=== PATIENT | male | born 1955 | race Caucasian/White ===

== ENCOUNTER 2018-12-29 07:35 | Outpatient (CLI) | payer OTHER ==
[2018-12-29 12:38] LABS: BASOPHILS # (AUTO) 0.1 10^3/uL (0.0-0.1); BASOPHILS % (AUTO) 0.7 %; EOSINOPHILS # (AUTO) 0.2 10^3/uL (0.0-0.7); HGB - HEMOGLOBIN 15.4 g/dL (14.0-18.0); LYMPHOCYTES # (AUTO) 2.3 10^3/uL (1.5-3.5); LYMPHOCYTES % (AUTO) 32.6 %; MEAN CORPUSCULAR HGB CONC 32.8 g/dL (32.0-36.0); MEAN CORPUSCULAR VOLUME 94.8 fL (80.0-94.0); MEAN PLATELET VOLUME 10.3 fL (7.4-11.4); MONOCYTES # (AUTO) 0.5 10^3/uL (0.0-1.0); MONOCYTES % (AUTO) 7.6 %; NEUTROPHILS # (AUTO) 3.9 10^3/uL (1.5-6.6); NEUTROPHILS % (AUTO) 55.8 %; PLT - PLATELET COUNT 320 10^3/uL (130-450); RED BLOOD COUNT 4.96 10^6/uL (4.70-6.10); RED CELL DISTRIBUTION WIDTH 12.6 % (12.0-15.0)
[2018-12-29 13:09] LABS: ALBUMIN 4.3 g/dL (3.2-5.5); ALBUMIN/GLOBULIN RATIO 1.5 (1.0-2.2); ALKALINE PHOSPHATASE 52 IU/L (42-121); ALT ALANINE AMINOTRANSFERASE 22 IU/L (10-60); AST ASPARTATE AMINOTRANSFERASE 22 IU/L (10-42); BILIRUBIN,TOTAL 1.3 mg/dL (0.2-1.0); BUN - BLOOD UREA NITROGEN 19 mg/dL (6-20); CALCIUM 9.3 mg/dL (8.5-10.3); CARBON DIOXIDE - CO2 22 mmol/L (21-32); CHLORIDE 108 mmol/L (101-111); CHOL/HDL RATIO 4.6 (<5.0); CHOLESTEROL 181 mg/dL; CREATININE 0.9 mg/dL (0.6-1.2); GFR - MDRD 85 (>89); GLUCOSE 104 mg/dL (70-100); HDL CHOLESTEROL 39 mg/dL; LDL CHOLESTEROL,CALCULATED 120 mg/dL; LDL/HDL RATIO 3.1 (<3.6); SODIUM 137 mmol/L (135-145); TOTAL PROTEIN 7.2 g/dL (6.7-8.2); VLDL CHOLESTEROL 22 mg/dL
== END 2018-12-29 23:59 | disposition home or self-care (01) ==
LOC: LAB.WCP 07:35
PROVIDERS: ATTEND Family Medicine
DX: I10 Essential (primary) hypertension (principal); Z12.5 Encounter for screening for malignant neoplasm of prostate; J45.909 Unspecified asthma, uncomplicated; J30.9 Allergic rhinitis, unspecified
CPT/HCPCS: 36415; 80053; 80061; 83721; 84153; 84443; 85025

== ENCOUNTER 2019-01-04 13:38 | Outpatient (CLI) | payer OTHER ==
[2019-01-04 19:34] LABS: BILIRUBIN,URINE NEGATIVE (NEGATIVE); GLUCOSE, URINE (UA) NEGATIVE (NEGATIVE); KETONES,URINE (UA) NEGATIVE (NEGATIVE); LEUKOCYTE ESTERASE, URINE NEGATIVE (NEGATIVE); NITRITE,URINE NEGATIVE (NEGATIVE); OCCULT BLOOD,URINE TRACE-LYSE (NEGATIVE); PROTEIN,URINE TRACE mg/dL (NEGATIVE); UROBILINOGEN,URINE 0.2 (NORMAL) E.U./dL (NORMAL)
[2019-01-04 19:39] LABS: CLARITY,URINE CLEAR (CLEAR)
[2019-01-04 19:59] LABS: BACTERIA,URINE None Seen /HPF (None Seen); RBC,URINE 0-5 /HPF (0-5); SQUAMOUS EPITHELIAL CELL,UR NONE SEEN (<= Few)
== END 2019-01-04 23:59 | disposition home or self-care (01) ==
LOC: LAB.R 13:38
PROVIDERS: ATTEND Family Medicine
DX: M54.5 Low back pain (principal)
CPT/HCPCS: 81001

== ENCOUNTER 2019-06-19 07:47 | Outpatient (CLI) | payer OTHER ==
[2019-06-19 12:39] LABS: BASOPHILS % (AUTO) 0.5 %; EOSINOPHILS # (AUTO) 0.3 10^3/uL (0.0-0.7); EOSINOPHILS % (AUTO) 3.4 %; HGB - HEMOGLOBIN 14.9 g/dL (14.0-18.0); LYMPHOCYTES # (AUTO) 2.3 10^3/uL (1.5-3.5); LYMPHOCYTES % (AUTO) 29.1 %; MEAN CORPUSCULAR HEMOGLOBIN 30.7 pg (27.0-31.0); MEAN CORPUSCULAR HGB CONC 31.8 g/dL (32.0-36.0); MEAN CORPUSCULAR VOLUME 96.5 fL (80.0-94.0); MEAN PLATELET VOLUME 10.4 fL (7.4-11.4); MONOCYTES # (AUTO) 0.7 10^3/uL (0.0-1.0); MONOCYTES % (AUTO) 9.1 %; NEUTROPHILS # (AUTO) 4.4 10^3/uL (1.5-6.6); NEUTROPHILS % (AUTO) 57.5 %; PLT - PLATELET COUNT 369 10^3/uL (130-450); RED BLOOD COUNT 4.86 10^6/uL (4.70-6.10); RED CELL DISTRIBUTION WIDTH 12.7 % (12.0-15.0); WHITE BLOOD COUNT 7.7 x10^3/uL (4.8-10.8)
[2019-06-19 13:10] LABS: ALBUMIN 4.5 g/dL (3.2-5.5); ALBUMIN/GLOBULIN RATIO 1.5 (1.0-2.2); BILIRUBIN,TOTAL 1.2 mg/dL (0.2-1.0); CALCIUM 9.3 mg/dL (8.5-10.3); CREATININE 0.9 mg/dL (0.6-1.2); TOTAL PROTEIN 7.5 g/dL (6.7-8.2)
== END 2019-06-19 23:59 | disposition home or self-care (01) ==
LOC: LAB.WCP 07:47
PROVIDERS: ATTEND Family Medicine
DX: R10.9 Unspecified abdominal pain (principal)
CPT/HCPCS: 36415; 80053; 82150; 83690; 84443; 85025

== ENCOUNTER 2019-06-20 15:44 | Outpatient (CLI) | payer OTHER ==
[2019-06-20] MEDS ORDERED: IOVERSOL 320 100 ML VIAL IVP ONE ×2 (15:48→16:11)
--- NOTE | 2019-06-21 16:46 | XRAY Report ---
Reason: LUMBAR PAIN Procedure Date: 06/20/2019 Accession Number: [id number] / [id number] Procedure: XR - Lumbar Spine 2 View CPT Code: Final Report FULL RESULT: EXAM: LUMBOSACRAL SPINE RADIOGRAPHY EXAM DATE: 06/20/2019 04:39 PM. CLINICAL HISTORY: Lumbar back pain. COMPARISONS: None. TECHNIQUE: 2 views. FINDINGS: Alignment: Normal. No spondylolisthesis or scoliosis. Bones: Five [id number]-[id number] lumbar vertebral bodies are present. No fractures or bone lesions. Degenerative changes: Mild diffuse disk height loss throughout the lumbar spine. Moderate lower lumbar facet DJD. Soft Tissues: Please see separate IVP report. The visualized bowel gas pattern is normal. Moderate stool burden. IMPRESSION: 2. Mild diffuse disk height loss throughout the lumbar spine. 2. Moderate lower lumbar facet DJD. RADIA
--- NOTE | 2019-06-21 17:11 | CT Report ---
Reason: RT FLANK PAIN, ABDOMINAL PAIN Procedure Date: 06/20/2019 Accession Number: [id number] / [id number] Procedure: CT - IVP CPT Code: Final Report FULL RESULT: EXAM: CT ABDOMEN AND PELVIS WITHOUT AND WITH CONTRAST (CT IVP) EXAM DATE: 06/20/2019 04:24 PM. CLINICAL HISTORY: RT FLANK PAIN, ABDOMINAL PAIN. COMPARISONS: None. TECHNIQUE: Routine helical imaging was performed through the kidneys, ureters and bladder in the precontrast and delayed phases. IV Contrast: 100 cc Optiray 320. Reconstructions: Coronal and sagittal. In accordance with CT protocol optimization, one or more of the following dose reduction techniques were utilized for this exam: automated exposure control, adjustment of mA and/or KV based on patient size, or use of iterative reconstructive technique. FINDINGS: Lung Bases: Unremarkable. Liver: Multiple hepatic cysts. Otherwise unremarkable. Gallbladder/Bile Ducts: Contracted, but otherwise unremarkable. No ductal dilation. Spleen: Normal. Pancreas: Normal. Adrenal Glands: Normal. Kidneys/Bladder: Right Kidney/Ureter: No renal or ureteral stones. No hydronephrosis or hydroureter. No masses. Left Kidney/Ureter: No renal or ureteral stones. No hydronephrosis or hydroureter. No masses. Bladder: Large right posterolateral diverticulum measuring 4.2 x 7.0 x 8.1 cm. No bladder calculi. Otherwise unremarkable. No wall thickening or mass. Peritoneal Cavity/Bowel: Moderate colonic diverticulosis. No free fluid, free air or adenopathy. No masses or acute inflammatory process. Pelvic Organs: Visualized pelvic organs are unremarkable. Vasculature: No aneurysms or other significant abnormality. Bones: No significant abnormality. Other: None. IMPRESSION: 1. Negative for urinary tract stone or hydronephrosis. 2. Large right posterolateral urinary bladder diverticulum. 3. Moderate diverticulosis and other chronic or incidental findings. RADIA
== END 2019-06-20 15:45 | disposition home or self-care (01) ==
LOC: DI 15:44
PROVIDERS: ATTEND Family Medicine
DX: N32.3 Diverticulum of bladder (principal); K57.30 Diverticulosis of large intestine without perforation or abscess without bleeding; M51.36 Other intervertebral disc degeneration, lumbar region; M47.816 Spondylosis without myelopathy or radiculopathy, lumbar region
CPT/HCPCS: 72100; 74178; Q9967

== ENCOUNTER 2019-09-08 08:27 | Outpatient (CLI) | payer OTHER ==
[2019-09-08 11:59] LABS: HGB - HEMOGLOBIN 14.1 g/dL (14.0-18.0); MEAN CORPUSCULAR HEMOGLOBIN 30.8 pg (27.0-31.0); MEAN CORPUSCULAR HGB CONC 32.4 g/dL (32.0-36.0); MEAN PLATELET VOLUME 9.9 fL (7.4-11.4); RED BLOOD COUNT 4.58 10^6/uL (4.70-6.10); RED CELL DISTRIBUTION WIDTH 12.6 % (12.0-15.0); WHITE BLOOD COUNT 9.4 x10^3/uL (4.8-10.8)
[2019-09-08 12:11] LABS: CK- CREATINE KINASE 60 IU/L (22-269); URIC ACID 6.5 mg/dL (2.6-7.2)
[2019-09-08 12:16] LABS: CRP - C-REACTIVE PROTEIN < 1.0 mg/dL (0-1.0)
[2019-09-08 12:30] LABS: RHEUMATOID FACTOR NEGATIVE (Negative)
[2019-09-13 06:56] LABS: ANA SCREEN NEGATIVE (NEGATIVE)
== END 2019-09-08 23:59 | disposition home or self-care (01) ==
LOC: LAB.WCP 08:27
PROVIDERS: ATTEND Family Medicine
DX: M25.50 Pain in unspecified joint (principal); M79.10 Myalgia, unspecified site
CPT/HCPCS: 36415; 82550; 84550; 85027; 85651; 86038; 86140; 86200; 86430

== ENCOUNTER 2019-09-22 08:00 | Outpatient (CLI) | payer OTHER | END 2019-09-22 23:59 | disposition home or self-care (01) | LOC: LAB.WCP 08:00 | PROVIDERS: ATTEND Family Medicine | DX: M35.3 Polymyalgia rheumatica (principal) | CPT/HCPCS: 36415; 85651 ==

== ENCOUNTER 2019-12-27 08:00 | Outpatient (CLI) | payer OTHER ==
[2019-12-27 18:42] LABS: BASOPHILS # (AUTO) 0.1 10^3/uL (0.0-0.1); BASOPHILS % (AUTO) 0.6 %; EOSINOPHILS # (AUTO) 0.3 10^3/uL (0.0-0.7); EOSINOPHILS % (AUTO) 2.6 %; HGB - HEMOGLOBIN 13.4 g/dL (14.0-18.0); LYMPHOCYTES # (AUTO) 2.1 10^3/uL (1.5-3.5); LYMPHOCYTES % (AUTO) 19.5 %; MEAN CORPUSCULAR HEMOGLOBIN 31.5 pg (27.0-31.0); MEAN CORPUSCULAR HGB CONC 32.5 g/dL (32.0-36.0); MEAN CORPUSCULAR VOLUME 96.9 fL (80.0-94.0); MONOCYTES # (AUTO) 0.6 10^3/uL (0.0-1.0); NEUTROPHILS # (AUTO) 7.5 10^3/uL (1.5-6.6); NEUTROPHILS % (AUTO) 70.8 %; PLT - PLATELET COUNT 372 10^3/uL (130-450); RED BLOOD COUNT 4.25 10^6/uL (4.70-6.10); RED CELL DISTRIBUTION WIDTH 12.9 % (12.0-15.0); WHITE BLOOD COUNT 10.6 x10^3/uL (4.8-10.8)
[2019-12-27 19:03] LABS: ALBUMIN/GLOBULIN RATIO 1.4 (1.0-2.2); BILIRUBIN,TOTAL 0.8 mg/dL (0.2-1.0); CALCIUM 8.6 mg/dL (8.5-10.3); CREATININE 0.9 mg/dL (0.6-1.2); TOTAL PROTEIN 6.8 g/dL (6.7-8.2)
== END 2019-12-27 23:59 | disposition home or self-care (01) ==
LOC: LAB.WCP 08:00
PROVIDERS: ATTEND Family Medicine
DX: M35.3 Polymyalgia rheumatica (principal); E78.5 Hyperlipidemia, unspecified; I10 Essential (primary) hypertension
CPT/HCPCS: 36415; 80053; 80061; 83721; 84443; 85025; 85651; 86140

== ENCOUNTER 2019-12-27 15:21 | Outpatient (CLI) | payer OTHER ==
--- NOTE | 2019-12-27 16:27 | XRAY Report ---
PROCEDURE: Shoulder 2 View BILAT INDICATIONS: BILAT SHOULDER PAIN/NECK PAIN TECHNIQUE: 2 views of each shoulder were acquired. COMPARISON: None. FINDINGS: Bones: No fractures or dislocations. No suspicious bony lesions. Visualized ribs appear intact. M ild periarticular osteophyte formation at the bilateral acromioclavicular and glenohumeral joints. Soft tissues: No suspicious soft tissue calcifications. IMPRESSION: Bilateral osteoarthritis. No acute fracture. No osseous lesion. If symptoms and/or clini jelena suspicion for pathology continue, further assessment with repeat plain films, or advanced imaging (e.g., CT, MRI, or bone scan) is recommended for further assessment. Reviewed by: Mitesh Mcmahon MD on 12/27/2019 4:26 PM PDT Approved by: Mitesh Mcmahon MD on 12/27/2019 4:26 PM PDT Station ID: [id number]
--- NOTE | 2019-12-27 16:28 | XRAY Report ---
PROCEDURE: Cervical Spine 2 View INDICATIONS: NECK PAIN TECHNIQUE: 3 view(s) of the cervical spine were acquired. COMPARISON: None. FINDINGS: Bones: No fractures or dislocations to the C7 level. The lateral masses of C1 appear intact on the odontoid view. No suspicious bony lesions. Mild multilevel endplate osteophytes and disc space narr owing, worst at C5-C6, indicating degenerative disc disease. Mild facet hypertrophy throughout the mi d and lower cervical spine. Soft tissues: No prevertebral soft tissue swelling. IMPRESSION: Mild multilevel degenerative disc and facet disease. No acute fracture. No osseous lesio n. If symptoms and/or clinical suspicion for pathology continue, further assessment with repeat plain films, or advanced imaging (e.g., CT, MRI, or bone scan) is recommended for further assessment. Reviewed by: Mitesh Mcmahon MD on 12/27/2019 4:27 PM PDT Approved by: Mitesh Mcmahon MD on 12/27/2019 4:27 PM PDT Station ID: [id number]
== END 2019-12-27 15:22 | disposition home or self-care (01) ==
LOC: DI 15:21
PROVIDERS: ATTEND Internal Medicine Rheumatology
DX: M19.012 Primary osteoarthritis, left shoulder (principal); M19.011 Primary osteoarthritis, right shoulder; M50.322 Other cervical disc degeneration at C5-C6 level; M47.812 Spondylosis without myelopathy or radiculopathy, cervical region
CPT/HCPCS: 72040

== ENCOUNTER 2020-02-16 07:08 | Emergency (ER) | payer OTHER ==
[2020-02-16] MEDS ORDERED: CHERRY SYRUP 10 ML UDC PO ONE (07:33)
[2020-02-16] MEDS ORDERED: DEXAMETHASONE 10 MG/ML VIAL PO STA (07:33)
--- NOTE | 2020-02-16 08:08 | ED Physician Documentation ---
History of Present Illness - Stated complaint Stated Complaint: NECK/SHOULDER PX - Chief complaint Chief Complaint: Back Pain - History obtained from History obtained from: Patient - History of Present Illness Timing: Other (8 months) - Additonal information Additional information: 64-year-old male who is had an issue with neck back and shoulder pain for the past 8 months has been treated for PMR and states that he did have some improvement with his pain during that period of time and when he reduced his dose to less than 10 mg/day his symptoms returned and despite further tapering he is not had improvement in his pain. He has worsening in his pain and he is here today with unrelenting symptoms of pain down into his hips from his neck shoulder and back. He has been referred to neurosurgery for evaluation and he has not been able as yet to get MR done secondary to insurance processing. Review of Systems Constitutional: reports: Fatigue. denies: Fever PD PAST MEDICAL HISTORY - Past Medical History Past Medical History: Yes Cardiovascular: Hypertension Respiratory: Asthma Neuro: None Endocrine/Autoimmune: None GI: None : None HEENT: None Psych: None Musculoskeletal: None Derm: None - Past Surgical History Past Surgical History: Yes - Present Medications Home Medications: Ambulatory Orders Medication Instructions Recorded Confirmed Sulfamethoxazole/Trimethoprim 1 each PO BID #14 tablet 02/16/20 [Sulfamethoxazole-Tmp Ds Tablet] - Allergies Allergies/Adverse Reactions: Allergies Allergy/AdvReac Type Severity Reaction Status Date / Time morphine Allergy Hallucinati Verified 02/16/20 07:37 ons - Social History Does the pt smoke?: No Smoking Status: Never smoker Does the pt drink ETOH?: No Does the pt have substance abuse?: No - Immunizations Immunizations are current?: Yes Results - Vitals Vitals: Vital Signs - 24 hr 02/16/20 02/16/20 02/16/20 07:14 07:24 08:21 Temperature 36.6 C 36.6 C Heart Rate 90 90 69 Respiratory 16 16 16 Rate Blood Pressure 130/94 H 130/94 H 129/89 H O2 Saturation 97 97 97 02/16/20 11:01 Temperature Heart Rate 60 Respiratory 20 Rate Blood Pressure 139/83 H O2 Saturation 97 Oxygen O2 Source Room air - Labs Labs: Laboratory Tests 02/16/20 02/16/20 02/16/20 08:20 08:20 08:20 WBC 9.9 RBC 4.28 L Hgb 13.7 L Hct 40.6 L MCV 94.9 H MCH 32.0 H MCHC 33.7 RDW 12.4 Plt Count 358 MPV 9.1 Neut # (Auto) 6.3 Lymph # (Auto) 2.4 [place] # (Auto) 0.9 Eos # (Auto) 0.2 Baso # (Auto) 0.1 Absolute Nucleated RBC 0.00 Nucleated RBC % 0.0 ESR 28 H Sodium 139 Potassium 4.2 Chloride 103 Carbon Dioxide 27 Anion Gap 9.0 BUN 19 Creatinine 1.0 Estimated GFR (MDRD) 75 L Glucose 103 H Calcium 9.1 Total Bilirubin 0.6 AST 17 ALT 17 Alkaline Phosphatase 76 C-Reactive Protein < 1.0 Total Protein 6.8 Albumin 3.9 Globulin 2.9 Albumin/Globulin Ratio 1.3 Lipase 22 TSH Urine Color Urine Clarity Urine pH Ur Specific [place] Urine Protein Urine Glucose (UA) Urine Ketones Urine Occult Blood Urine Nitrite Urine Bilirubin Urine Urobilinogen Ur Leukocyte Esterase Urine RBC Urine WBC Ur Squamous Epith Cells Urine Bacteria Ur Microscopic Review Urine Culture Comments 02/16/20 02/16/20 08:20 11:57 WBC RBC Hgb Hct MCV MCH MCHC RDW Plt Count MPV Neut # (Auto) Lymph # (Auto) [place] # (Auto) Eos # (Auto) Baso # (Auto) Absolute Nucleated RBC Nucleated RBC % ESR Sodium Potassium Chloride Carbon Dioxide Anion Gap BUN Creatinine Estimated GFR (MDRD) Glucose Calcium Total Bilirubin AST ALT Alkaline Phosphatase C-Reactive Protein Total Protein Albumin Globulin Albumin/Globulin Ratio Lipase TSH 4.48 Urine Color YELLOW Urine Clarity HAZY Urine pH 8.0 H Ur Specific [place] 1.015 Urine Protein TRACE Urine Glucose (UA) NEGATIVE Urine Ketones NEGATIVE Urine Occult Blood SMALL H Urine Nitrite NEGATIVE Urine Bilirubin NEGATIVE Urine Urobilinogen 0.2 (NORMAL) Ur Leukocyte Esterase SMALL H Urine RBC 6-10 H Urine WBC 11-25 H Ur Squamous Epith Cells RARE Squamous Urine Bacteria Few Ur Microscopic Review INDICATED Urine Culture Comments INDICATED - Rads (name of study) MRIneck Radiology: Prelim report reviewed (Impression: Spondylitic and spondylo- arthroplastic changes from C3-C4 through C6-C7 producing varying degrees of neuroforaminal stenosis, severe bilaterally at C5-C6 correlate with any corresponding C6 radicular symptoms.), EMP read indepedently, See rad report PD MEDICAL DECISION MAKING - ED course Complexity details: reviewed old records, reviewed results, re-evaluated patient, considered differential, d/w patient, d/w family ED course: 64-year-old male who is been treated for polymyalgia rheumatica appears to have had improvement with prednisone and then increasing symptoms with a decreasing dose and he has now had unrelenting symptoms. He is coming to the emergency department for evaluation to include MR of the spine and this was able to be achieved here in the emergency room today. There is evidence of spondylolisthesis and spondylolysis at 5 6 and I am not able to demonstrate any deficit of any kind related to the level. He does have general pain to the area.He is treated here in the emergency department with 10 mg of dexamethasone orally and during his stay in the emergency department while awaiting his MRI of his cervical spine he has marked improvement in his symptomatology. I am still uncertain of the underlying etiology of the patient's pain but I favor PMR as the diagnosis with elevated ESR and prompt relief with the decadron. No other medications were given in the ED. I have deferred back to Dr. Guerrier for further treatment and I have faxed the patient's labs to Dr. Guerrier. Departure - Departure Disposition: Home, Self Care Clinical Impression: Cervical radicular pain, Polymyalgia rheumatica syndrome Urinary tract infection Qualifiers: Urinary tract infection type: acute cystitis Hematuria presence: with hematuria Qualified Code(s): N30.01 - Acute cystitis with hematuria Condition: Stable Instructions: Understanding Polymyalgia Rheumatica, ED Cervical Radiculopathy, ED UTI Cystitis Male Follow-Up: Ed Guerrier MD [Physician No Access] - Rojas Marie MD [Primary Care Provider] - Prescriptions: Sulfamethoxazole/Trimethoprim [Sulfamethoxazole-Tmp Ds Tablet] 1 each PO BID #14 tablet Comments: Follow-up with Dr. Guerrier this afternoon for consideration of further treatment.
[2020-02-16 08:25] LABS: BASOPHILS # (AUTO) 0.1 10^3/uL (0.0-0.1); BASOPHILS % (AUTO) 0.6 %; EOSINOPHILS # (AUTO) 0.2 10^3/uL (0.0-0.7); EOSINOPHILS % (AUTO) 2.1 %; HGB - HEMOGLOBIN 13.7 g/dL (14.0-18.0); LYMPHOCYTES # (AUTO) 2.4 10^3/uL (1.5-3.5); LYMPHOCYTES % (AUTO) 24.6 %; MEAN CORPUSCULAR HGB CONC 33.7 g/dL (32.0-36.0); MEAN CORPUSCULAR VOLUME 94.9 fL (80.0-94.0); MEAN PLATELET VOLUME 9.1 fL (7.4-11.4); MONOCYTES # (AUTO) 0.9 10^3/uL (0.0-1.0); MONOCYTES % (AUTO) 8.6 %; NEUTROPHILS # (AUTO) 6.3 10^3/uL (1.5-6.6); NEUTROPHILS % (AUTO) 63.6 %; PLT - PLATELET COUNT 358 10^3/uL (130-450); RED BLOOD COUNT 4.28 10^6/uL (4.70-6.10); RED CELL DISTRIBUTION WIDTH 12.4 % (12.0-15.0); WHITE BLOOD COUNT 9.9 x10^3/uL (4.8-10.8)
[2020-02-16 08:44] LABS: ALBUMIN 3.9 g/dL (3.2-5.5); ALBUMIN/GLOBULIN RATIO 1.3 (1.0-2.2); ALKALINE PHOSPHATASE 76 IU/L (42-121); ALT ALANINE AMINOTRANSFERASE 17 IU/L (10-60); AST ASPARTATE AMINOTRANSFERASE 17 IU/L (10-42); BILIRUBIN,TOTAL 0.6 mg/dL (0.2-1.0); BUN - BLOOD UREA NITROGEN 19 mg/dL (6-20); CALCIUM 9.1 mg/dL (8.5-10.3); CARBON DIOXIDE - CO2 27 mmol/L (21-32); CHLORIDE 103 mmol/L (101-111); GLUCOSE 103 mg/dL (70-100); LIPASE 22 U/L (22-51); SODIUM 139 mmol/L (135-145); TOTAL PROTEIN 6.8 g/dL (6.7-8.2)
[2020-02-16 08:57] LABS: CRP - C-REACTIVE PROTEIN < 1.0 mg/dL (0-1.0)
[2020-02-16 12:09] LABS: BILIRUBIN,URINE NEGATIVE (NEGATIVE); GLUCOSE, URINE (UA) NEGATIVE (NEGATIVE); KETONES,URINE (UA) NEGATIVE (NEGATIVE); LEUKOCYTE ESTERASE, URINE SMALL (NEGATIVE); NITRITE,URINE NEGATIVE (NEGATIVE); OCCULT BLOOD,URINE SMALL (NEGATIVE); PROTEIN,URINE TRACE mg/dL (NEGATIVE); UROBILINOGEN,URINE 0.2 (NORMAL) E.U./dL (NORMAL)
[2020-02-16 12:12] LABS: CLARITY,URINE HAZY (CLEAR)
[2020-02-16 12:18] LABS: BACTERIA,URINE Few /HPF (None Seen); SQUAMOUS EPITHELIAL CELL,UR RARE Squamous (<= Few)
--- NOTE | 2020-02-16 13:09 | MRI Report ---
PROCEDURE: Cervical Spine W/O INDICATIONS: Severe neck and shoulder pain TECHNIQUE: Noncontrast sagittal T1 spin echo and T2 fast spin echo, sagittal STIR, foraminal oblique sagittal T2 fast spin echo, and axial gradient echo or T2 fast spin echo through the cervical spine. COMPARISON: None. FINDINGS: Image quality: Excellent. Alignment and Curvature: There is normal bony alignment. Bone Marrow: Marrow demonstrates normal overall signal. Spinal Cord: Visualized spinal cord has normal size and signal. No cerebellar tonsillar herniation. Paraspinous Soft Tissues: No paravertebral masses. Prevertebral soft tissues are normal in thicknes s. C2-C3: No spinal canal or neural foraminal stenosis. C3-C4: Posterior discussed by complex flattens the ventral thecal sac without mass effect upon the cord. Facet and uncovertebral hypertrophy contribute to mild bilateral neural foraminal stenosis. C4-C5: Posterior discussed by complex without mass effect on the cord or spinal canal stenosis. Face t and uncovertebral hypertrophy contribute to mild bilateral neural foraminal narrowing. C5-C6: Posterior disc osteophyte complex without mass effect upon the cord or spinal canal stenosis. Facet and uncovertebral hypertrophy contribute to severe bilateral neural foraminal narrowing. C6-C7: Posterior discussed by complex without mass effect upon the cord or spinal canal stenosis. Fa cet and uncovertebral hypertrophy contribute to moderate left and mild right neural foraminal stenosi s. C7-T1: No spinal canal or neural foraminal stenosis. IMPRESSION: Spondylitic and spondyloarthropathic changes from C3-C4 through C6-C7, producing varying degrees of n eural foraminal stenosis, severe bilaterally at C5-C6. Correlate for any corresponding C6 radicular s ymptoms. Reviewed by: Khris Del Valle MD on 02/16/2020 1:08 PM PDT Approved by: Khris Del Valle MD on 02/16/2020 1:08 PM PDT Station ID: [id number]
[2020-02-16 14:58] VITALS: BP 132/67
== END 2020-02-16 13:53 | disposition home or self-care (01) ==
LOC: ED 07:08
DX: M35.3 Polymyalgia rheumatica (principal); M43.12 Spondylolisthesis, cervical region; M47.22 Other spondylosis with radiculopathy, cervical region; M48.02 Spinal stenosis, cervical region; N30.01 Acute cystitis with hematuria; I10 Essential (primary) hypertension
CPT/HCPCS: 36415; 72141; 81001; 83690; 85651; 86140; 87086; 99283; 99284; A9270; 80053; 81003; 84443; 85025

== ENCOUNTER 2020-06-03 08:20 | Outpatient (CLI) | payer OTHER ==
--- NOTE | 2020-06-03 10:14 | DEXA Report ---
PROCEDURE: Dexa Spine and/or Hip INDICATIONS: OSTEOPOROSIS TECHNIQUE: Dual energy x-ray absorptiometry (DXA) was performed on a Collect System. Regions measur ed are the AP Spine, femoral neck, and if needed forearm. COMPARISON: None. FINDINGS: Lumbar Spine: Bone Mineral Density 1.068 g/cm/cm,T score -1.3, osteopenia Left Hip: Bone Mineral Density 0.889 g/cm/cm,T score -1.5, osteopenia Left Femoral Neck: Bone Mineral Density 0.808 g/cm/cm, T score -2.0, osteopenia (T score greater or equal to -1.0: NORMAL) (T score from -1.1 to -2.4: OSTEOPENIA) (T score less than or equal to -2.5 to: OSTEOPOROSIS) Impression: Osteopenia is present at the lumbosacral spine, left hip overall and the left femoral nec k. Patients with diagnosis of osteoporosis or osteopenia should have regular bone mineral density assess ment. For those eligible for Medicare, routine testing is allowed once every 2 years. Testing frequ ency can be increased for patients who have rapidly progressing disease or for those who are receivin g medical therapy to restore bone mass. Reviewed by: Sacha Elise MD on 06/03/2020 10:13 AM PST Approved by: Sacha Elise MD on 06/03/2020 10:13 AM PST Station ID: [id number]
== END 2020-06-03 08:21 | disposition home or self-care (01) ==
LOC: DI 08:20
PROVIDERS: ATTEND Internal Medicine Rheumatology
DX: M85.89 Other specified disorders of bone density and structure, multiple sites (principal)

== ENCOUNTER 2020-06-13 10:50 | Outpatient (CLI) | payer OTHER | END 2020-06-13 10:51 | disposition home or self-care (01) | LOC: LAB 10:50 | PROVIDERS: ATTEND Internal Medicine Rheumatology | DX: M35.3 Polymyalgia rheumatica (principal); M79.10 Myalgia, unspecified site | CPT/HCPCS: 36415; 85651; 86140 ==

== ENCOUNTER 2020-07-10 08:00 | Outpatient (CLI) | payer OTHER ==
[2020-07-10 13:44] LABS: ALBUMIN 4.4 g/dL (3.2-5.5); ALBUMIN/GLOBULIN RATIO 1.8 (1.0-2.2); BILIRUBIN,TOTAL 0.6 mg/dL (0.2-1.0); CALCIUM 9.7 mg/dL (8.5-10.3); CREATININE 0.9 mg/dL (0.6-1.2); TOTAL PROTEIN 6.9 g/dL (6.7-8.2)
[2020-07-10 14:57] LABS: HEMOGLOBIN A1c% 5.6 % (4.27-6.07)
== END 2020-07-10 23:59 | disposition home or self-care (01) ==
LOC: LAB.WCP 08:00
PROVIDERS: ATTEND Internal Medicine Rheumatology
DX: M35.3 Polymyalgia rheumatica (principal); R73.9 Hyperglycemia, unspecified
CPT/HCPCS: 36415; 80053; 83036

== ENCOUNTER 2020-07-20 02:01 | Outpatient (CLI) | payer OTHER, MEDICARE | END 2020-07-20 02:02 | disposition critical access hospital (66) | LOC: EMS 02:01 | PROVIDERS: ATTEND Surgery | DX: R10.84 Generalized abdominal pain (principal); R19.7 Diarrhea, unspecified | CPT/HCPCS: A0425; A0427 ==

== ENCOUNTER 2020-07-20 02:09 | Inpatient (IN) | payer MEDICARE, OTHER ==
[2020-07-20] MEDS ORDERED: SODIUM CHLORIDE 0.9% 1,000 ML IV STA ×2 (03:05→04:46)
--- NOTE | 2020-07-20 03:08 | ED Physician Documentation ---
PD HPI NVD - Stated complaint Stated Complaint: ABD PX - Chief complaint Chief Complaint: Abd Pain - History obtained from History obtained from: Patient - History of Present Illness Timing - onset: How many days ago (4) Timing - duration: Days (4) Timing - details: Gradual onset, Still present Associated symptoms: Abdominal pain Contributing factors: Bad food (had chili dog with raw onion and does not tolerate raw onion.) Improved by: BM Worsened by: Palpation Similar symptoms before: No diagnosis Recently seen: Not recently seen - Additonal information Additional information: Previously well 64-year-old male has developed diarrhea after eating chili dog with raw onions. This happened about 4 days ago and he was able to eat the next day had some pizza with some jalapenos on it and this again irritated the patient's intestine and he had further diarrhea he has now had diarrhea for 4 days and this evening had chills nausea but has not vomited. He denies any history of inflammatory bowel disease or family history of inflammatory bowel disease and he denies any blood in the diarrhea. He has had undulation of his pain he does currently not have pain. He has chills and feels ill. Review of Systems Constitutional: reports: Chills, Myalgias, Fatigue, Sweats Eyes: denies: Decreased vision Ears: denies: Ear pain Nose: denies: Rhinorrhea / runny nose, Congestion Throat: denies: Sore throat Cardiac: denies: Chest pain / pressure, Palpitations Respiratory: denies: Dyspnea, Cough, Wheezing GI: reports: Abdominal Pain, Nausea, Diarrhea. denies: Vomiting : denies: Dysuria, Frequency PD PAST MEDICAL HISTORY - Past Medical History Cardiovascular: Hypertension Respiratory: Asthma Neuro: None Endocrine/Autoimmune: Other GI: None : None HEENT: None Psych: None Musculoskeletal: None Derm: None Other Past Medical History: Polymyalgia rheumatica - Past Surgical History Past Surgical History: Yes - Present Medications Home Medications: Ambulatory Orders Medication Instructions Recorded Confirmed Sulfamethoxazole/Trimethoprim 1 each PO BID #14 tablet 02/16/20 [Sulfamethoxazole-Tmp Ds Tablet] - Allergies Allergies/Adverse Reactions: Allergies Allergy/AdvReac Type Severity Reaction Status Date / Time morphine Allergy Hallucinati Verified 07/20/20 02:24 ons - Social History Does the pt smoke?: No Smoking Status: Never smoker Does the pt drink ETOH?: No Does the pt have substance abuse?: No - Immunizations Immunizations are current?: Yes PD ED PE NORMAL - Vitals Vital signs reviewed: Yes (hypertensive ) - General General: Alert and oriented X 3, Well developed/nourished, Other (Ther patient does appear to have chills ) - HEENT HEENT: Atraumatic, PERRL, EOMI - Neck Neck: Supple, no meningeal sign - Cardiac Cardiac: RRR, No murmur - Respiratory Respiratory: No respiratory distress, Clear bilaterally - Abdomen Abdomen: Normal bowel sounds, Soft, Non tender, Non distended, No organomegaly - Back Back: No CVA TTP, No spinal TTP - Derm Derm: Normal color, Warm and dry, No rash - Extremities Extremities: No deformity, No edema - Neuro Neuro: Alert and oriented X 3, clay thrower 2-12 intact, No motor deficit, No sensory deficit, Normal speech Eye Opening: Spontaneous Motor: Obeys Commands Verbal: Oriented GCS Score: 15 - Psych Psych: Normal mood, Normal affect Results - Vitals Vitals: Vital Signs - 24 hr 07/20/20 07/20/20 07/20/20 02:18 02:43 04:38 Temperature 36.4 C L 36.4 C L Heart Rate 73 73 90 Respiratory 18 18 Rate Blood Pressure 147/97 H 147/97 H 144/79 H O2 Saturation 98 98 98 07/20/20 06:20 Temperature Heart Rate 89 Respiratory Rate Blood Pressure 136/88 H O2 Saturation 98 Oxygen O2 Source Room air - Labs Labs: Laboratory Tests 07/20/20 07/20/20 07/20/20 03:25 03:25 06:18 WBC 16.8 H RBC 4.49 L Hgb 14.4 Hct 43.7 MCV 97.3 H MCH 32.1 H MCHC 33.0 RDW 12.7 Plt Count 340 MPV 9.4 Neut # (Auto) Not Reportable Lymph # (Auto) Not Reportable [place] # (Auto) Not Reportable Eos # (Auto) Not Reportable Baso # (Auto) Not Reportable Absolute Nucleated RBC Not Reportable Total Counted 100 Band Neuts % (Manual) 0 Abnorm Lymph % (Manual) 0 Nucleated RBC % Not Reportable Neutrophils # (Manual) 12.3 H Lymphocytes # (Manual) 2.4 Monocytes # (Manual) 2.2 H Eosinophils # (Manual) 0.0 Basophils # (Manual) 0.0 Differential Comment MANUAL DIFFERENTIAL WBC Morphology NORMAL APPEARANCE Platelet Estimate NORMAL (130-450,000) Platelet Morphology NORMAL APPEARANCE RBC Morph Micro Appear NORMAL APPEARANCE Sodium 140 Potassium 3.8 Chloride 105 Carbon Dioxide 25 Anion Gap 10.0 BUN 24 H Creatinine 1.0 Estimated GFR (MDRD) 75 L Glucose 110 H Calcium 8.9 Total Bilirubin 1.0 AST 34 ALT 44 Alkaline Phosphatase 60 Total Protein 7.0 Albumin 4.3 Globulin 2.7 Albumin/Globulin Ratio 1.6 Lipase 22 Urine Color YELLOW Urine Clarity CLEAR Urine pH 5.5 Ur Specific [place] <=1.005 Urine Protein NEGATIVE Urine Glucose (UA) NEGATIVE Urine Ketones NEGATIVE Urine Occult Blood NEGATIVE Urine Nitrite NEGATIVE Urine Bilirubin MODERATE H Urine Urobilinogen 0.2 (NORMAL) Ur Leukocyte Esterase NEGATIVE Ur Microscopic Review NOT INDICATED Urine Culture Comments NOT INDICATED - Rads (name of study) CT ab/pel with Radiology: Prelim report reviewed (Impression: Pancolitis is probably infectious in etiology. No CT evidence of ischemia.), EMP read indepedently, See rad report Procedures - IVC sono (time) 0300 Bedside IVC sono: IVC measures (cm) (0.77), Dehydration (est 2-3 liter deficit) PD MEDICAL DECISION MAKING - ED course Complexity details: reviewed old records, reviewed results, re-evaluated patient, considered differential, d/w patient ED course: 64 y/o male with acute diarrhea and chills is dehydrated on interrogation of the IVC. He is administered IV saline. Patient has no significant improvement in his feeling of illness. Continues to have periodic abdominal cramping he has not had any diarrhea out in the emergency department he has not able to urinate now. He has had a prior TURP and he is on Flomax and he has a good sized bladder diverticula. His CT scan is consistent with ludwig-colitis, his WBC is elevated and he continues to have chills and feel ill despite IV hydration. Departure - Departure Disposition: 64 [facility] DC/Xfer Clinical Impression: Colitis, infectious Condition: Stable
[2020-07-20 03:52] LABS: BASOPHILS % (AUTO) 0.3 %; EOSINOPHILS % (AUTO) 1.2 %; HGB - HEMOGLOBIN 14.4 g/dL (14.0-18.0); LYMPHOCYTES % (AUTO) 11.5 %; MEAN CORPUSCULAR HEMOGLOBIN 32.1 pg (27.0-31.0); MEAN CORPUSCULAR VOLUME 97.3 fL (80.0-94.0); MEAN PLATELET VOLUME 9.4 fL (7.4-11.4); MONOCYTES % (AUTO) 12.9 %; NEUTROPHILS % (AUTO) 73.7 %; PLT - PLATELET COUNT 340 10^3/uL (130-450); RED BLOOD COUNT 4.49 10^6/uL (4.70-6.10); RED CELL DISTRIBUTION WIDTH 12.7 % (12.0-15.0); WHITE BLOOD COUNT 16.8 x10^3/uL (4.8-10.8)
[2020-07-20 03:54] LABS: ABNORMAL LYMPHS % (MANUAL) 0 %; BAND NEUTROPHILS % (MANUAL) 0 %
[2020-07-20 04:05] LABS: ALBUMIN 4.3 g/dL (3.2-5.5); ALBUMIN/GLOBULIN RATIO 1.6 (1.0-2.2); CALCIUM 8.9 mg/dL (8.5-10.3)
[2020-07-20 04:13] LABS: LYMPHOCYTES # (MANUAL) 2.4 10^3/uL (1.5-3.5); LYMPHOCYTES % (MANUAL) 14 %; MONOCYTES # (MANUAL) 2.2 10^3/uL (0.0-1.0)
[2020-07-20 04:14] LABS: DIFFERENTIAL COMMENT MANUAL DIFFERENTIAL; PLATELET ESTIMATE, MANUAL NORMAL (130-450,000) (NORMAL); PLATELET MORPHOLOGY NORMAL APPEARANCE (NORMAL); RBC MORPHOLOGY (MULTIPLE) NORMAL APPEARANCE (NORMAL)
[2020-07-20] MEDS ORDERED: IOVERSOL 320 100 ML VIAL IVP ONE ×2 (04:45→05:46)
[2020-07-20 07:02] LABS: GLUCOSE, URINE (UA) NEGATIVE (NEGATIVE); KETONES,URINE (UA) NEGATIVE (NEGATIVE); LEUKOCYTE ESTERASE, URINE NEGATIVE (NEGATIVE); NITRITE,URINE NEGATIVE (NEGATIVE); OCCULT BLOOD,URINE NEGATIVE (NEGATIVE); PH,URINE 5.5 PH (5.0-7.5); PROTEIN,URINE NEGATIVE (NEGATIVE); UROBILINOGEN,URINE 0.2 (NORMAL) E.U./dL (NORMAL)
[2020-07-20 07:10] LABS: BILIRUBIN,URINE MODERATE (NEGATIVE); CLARITY,URINE CLEAR (CLEAR); ICTOTEST,URINE POSITIVE
[2020-07-20] MEDS ORDERED: SODIUM CHLORIDE FLUSH 0.9% 10 ML SYRINGE IVP PRN (07:27)
--- NOTE | 2020-07-20 07:55 | HISTORY & PHYSICAL EXAMINATION ---
Chief Complaint - Chief Complaint Chief Complaint: abdominal cramps and diarrhea History of Present Illness - Admitted From Admitted From:: [facility] ED - History Obtained From Records Reviewed: yes History obtained from: patient - History of Present Illness HPI Comment/Other: Patient is a 64-year-old male with medical history significant for asthma, status post TURP, hypertension and current work-up for PMR but currently on prednisone who presented to the ED with complaint of abdominal cramp/pain and explosive diarrhea for the past 3 days. He thinks it started after he had chili dogs with raw green onions on the. He adds that he really does not tolerate green onions well. The following day he also had pizza with jalapeno peppers on them. Since then he had been going to the bathroom almost every other hour. He reported experiencing chills, shaking at home and breaking out in cold sweats. He denied chest pain, dyspnea or vomiting, however he had been nauseous as well. In the ED work-up included a CT scan of the abdomen pelvis which showed diffuse colitis suggestive of an infectious process. He also had a WBC ogf 16.8. As a result he was presented for admission for further treatment. History - Past Medical History Cardiovascular: reports: Hypertension Respiratory: reports: Asthma Neuro: reports: None Endocrine/Autoimmune: reports: Other GI: reports: None : reports: Other (Hx of a Bladder Diverticulum s/p TURP) HEENT: reports: None Psych: reports: None Musculoskeletal: reports: None Derm: reports: None MRSA Hx?: No Other Past Medical History: Polymyalgia rheumatica - Past Surgical History Ortho: reports: Other (TURP) - Family & Social History Family History Comment/Other: Patient's father of pancreatic cancer at the age of 66. Patient's mother of Alzheimer's. She also had hypertension and obesity. Patient's grandfather of a bladder cancer at age of 68. The patient's grandmother from complications of diabetes mellitus Living arrangement: At home Living Situation: With spouse/s.o. Social History Notes: He lives at home with his . He does not smoke how are you drink alcohol. He does not consume recreational substances either. 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 - POLST Patient has POLST: No POLST Status: Full Code Meds/Allgy - Home Medications Home Medications: Ambulatory Orders Medication Instructions Recorded Confirmed Albuterol Sulfate [Proair Hfa 1 - 2 puffs INH QID PRN 07/20/20 07/20/20 Inhaler] Budesonide/Formoterol Fumarate 1 puffs INH BID 07/20/20 07/20/20 [Symbicort 160-4.5 Mcg Inhaler] Celecoxib [Celebrex] 200 mg PO DAILYWM 07/20/20 Cyclobenzaprine [Flexeril] 10 mg PO BID PRN 07/20/20 07/20/20 Etodolac [Lodine] 400 mg PO BIDWM 07/20/20 07/20/20 Irbesartan [Avapro] 150 mg PO DAILY 07/20/20 07/20/20 Tamsulosin [Flomax] 0.4 mg PO QPM 07/20/20 07/20/20 predniSONE [Deltasone] 1 mg PO 0800 07/20/20 predniSONE [Deltasone] 5 mg PO 0800 07/20/20 - Allergies Allergies/Adverse Reactions: Allergies Allergy/AdvReac Type Severity Reaction Status Date / Time morphine Allergy Hallucinati Verified 07/20/20 02:24 ons Review of Systems - Constitutional Constitutional: reports: Chills, Other (rigor,) - Eyes Eyes: denies: Pain, Dipolpia - Ears, Nose & Throat Ears, Nose & Throat: denies: Ear pain, Sore throat, Hoarseness - Cardiovascular Cariovascular: denies: Irregular heart rate, Palpitations, Chest pain - Respiratory Respiratory: denies: Cough, Sputum production, Wheezing, SOB at rest, SOB with exertion - Gastrointestinal Gastrointestinal: reports: Abdominal pain, Abdominal distention, Diarrhea, N ausea. denies: Rectal bleeding, Vomiting, Reflux/heartburn, Bloating - Genitourinary Genitourinary: denies: Dysuria, Frequency, Urgency, Hematuria - Musculoskeletal Musculoskeletal: denies: Muscle pain, Back pain - Integumentary Integumentary: denies: Rash, Pruritis, Lesions - Neurological Neurological: denies: General weakness, Focal weakness, Headache, Dizziness - Psychiatric Psychiatric: denies: Depression, Anxiety - Endocrine Endocrine: denies: Polyuria, Polydypsia - Hematologic/Lymphatic Hematologic/Lymphatic: denies: Anemia, Bruising, Petechiae Prior Level of Functionality: She is independent of activities of daily living. 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 He is slated to retire in the upcoming week Exam - Vital Signs Vital Signs: Vital Signs x48h Temp Pulse Resp BP Pulse Ox 07/20/20 07:54 87 17 138/89 H 98 07/20/20 06:20 89 136/88 H 98 07/20/20 04:38 90 144/79 H 98 07/20/20 02:43 36.4 C L 73 18 147/97 H 98 07/20/20 02:18 36.4 C L 73 18 147/97 H 98 - Physical Exam General Appearance: positive: Alert, Moderate distress Eyes Bilateral: positive: PERRL, EOMI ENT: positive: Dry mucous membranes Neck: positive: No JVD, Trachea midline Respiratory: positive: Chest non-tender, No respiratory distress, Breath sounds nml. negative: Wheezes, Rales, Rhonchi Cardiovascular: positive: Regular rate & rhythm, No murmur Abdomen: positive: Nml bowel sounds, Other (Bloated. Mild tenderness). negative: Guarding, Rebound Skin: positive: Color nml, No rash, Warm, Dry Extremities: positive: Non-tender, Full ROM, Nml appearance, No pedal edema Neurologic/Psychiatric: positive: Oriented x3, Mood/affect nml Conclusion/Plan - Problem List (1) Colitis Conclusion/Plan: Likely infectious. Pt's WBC 16.8. Will administer IV fluids with normal saline at 125 mils per hour. Stool cultures and C. difficile test ordered. If no improvement in patient's clinical status tomorrow will order blood cultures. Patient was started on Cipro and Flagyl. Patient on a clear liquid diet. We will hold patient's prednisone, etodolac and Celebrex. (2) History of asthma Conclusion/Plan: Not in exacerbation.DuoNeb, budesonide and formoterol ordered. (3) Hypertension Conclusion/Plan: Hydralazine as needed for systolic blood pressure greater than 160. Patient is on irbesartan at home. (4) BPH (benign prostatic hyperplasia) Conclusion/Plan: We will continue patient's tamsulosin. Patient currently has a Ren catheter because of difficulty urinating in the ED. UA was unremarkable. (5) Polymyalgia rheumatica syndrome Conclusion/Plan: Still being worked up by the patient's urologist. However the patient was put on prednisone prophylactically which is currently being tapered. He takes 7 mg p.o. daily. In light of possible infectious colitis will hold steroids and NSAIDs - Lab Results Fish Bones: 07/20/20 03:25 07/20/20 03:25 Core Measures - Anticipated LOS I expect patient to be DC'd or transferred within 96 hours.: Yes - DVT/VTE - Prophylaxis VTE/DVT Device ordered at admit?: Yes VTE/DVT Prophylaxis med ordered at admit?: Yes
[2020-07-20] MEDS ORDERED: CIPROFLOXACIN 400 MG/200 ML 400 MG/200 ML BAG IV SCH (09:00)
[2020-07-20 09:57] LABS: C. PNEUMONIAE- RESP PCR PANEL NOT DETECTED
[2020-07-20] MEDS ORDERED: SODIUM CHLORIDE 0.9% 1,000 ML IV SCH (10:00)
--- NOTE | 2020-07-20 11:09 | CT Report ---
PROCEDURE: Abdomen/Pelvis W INDICATIONS: suprapubic pain CONTRAST: IV CONTRAST: Optiray 320 ml: 100 PO CONTRAST: *NO PO CONTRAST TECHNIQUE: After the administration of IV contrast, 5 mm thick sections acquired from the diaphragms to the symp hysis. 5 mm thick coronal and sagittal reformats were acquired. For radiation dose reduction, the f ollowing was used: automated exposure control, adjustment of mA and/or kV according to patient size. COMPARISON: CT abdomen pelvis 06/22/2019 FINDINGS: Image quality: Excellent. ABDOMEN: Lung bases: Lung bases are clear. Heart size is normal. Solid organs: Liver and spleen are normal in size. Low-attenuation hepatic foci are noted the larges t measuring 25 mm. Gallbladder is unremarkable Biliary system is non dilated. Pancreas enhances nor cathy. No adrenal nodules. Kidneys demonstrate normal size and enhancement, without hydronephrosis. Punctate nonobstructing left renal calculus. Peritoneum and bowel: Bowel loops are nonobstructed. There is a thickened appearance of the colon di ffusely most significant in the sigmoid. Colon is incompletely distended. No free fluid or air. Nodes and vessels: No retroperitoneal or mesenteric adenopathy by size criteria. Aorta and inferior vena cava are normal in size. Miscellaneous: No ventral hernias. PELVIS: Genitourinary: Bladder wall thickness is normal. Large bladder diverticulum is noted on the right, unchanged. Miscellaneous: No inguinal hernias or adenopathy. Bones: No suspicious bony lesions. No vertebral body compression fractures. IMPRESSION: 1. Thickened appearance of the colon as above. While portions could be secondary to incomplete disten tion, overall appearance appears most suggestive of diffuse colitis secondary to infection, or less l ikely ischemia The above findings are concordant with preliminary report. Reviewed by: Lashawn Farnsworth MD on 07/20/2020 11:08 AM PST Approved by: Lashawn Farnsworth MD on 07/20/2020 11:08 AM PST Station ID: [id number]
[2020-07-20] MEDS: metroNIDAZOLE 500 MG/100 ML 500 MG/100 ML BAG IV SCH ×2 (15:08→21:32)
[2020-07-20] MEDS ORDERED: hydrALAZINE INJ 20 MG/ML VIAL IVP PRN (15:32)
[2020-07-20] MEDS: SODIUM CHLORIDE 0.9% 1,000 ML IV SCH ×2 (16:44→21:32)
[2020-07-20] MEDS: VANCOMYCIN 125 MG CAPSULE PO SCH ×2 (16:50→21:30)
[2020-07-20] MEDS: SODIUM CHLORIDE FLUSH 0.9% 10 ML SYRINGE IVP SCH ×2 (16:50→23:37)
[2020-07-20] MEDS: ACETAMINOPHEN 325 MG TABLET PO PRN ×2 (17:00→21:31)
[2020-07-20] MEDS: IPRATROPIUM/ALBUTEROL 3 ML NEB INH PRN (21:18)
[2020-07-20] MEDS: FORMOTEROL FUMARATE NEB 20 MCG/2 ML INH SCH (21:18)
[2020-07-20] MEDS: BUDESONIDE 0.5 MG/2 ML NEB INH SCH (21:19)
[2020-07-20] MEDS: TAMSULOSIN 0.4 MG CAPSULE PO SCH (21:31)
[2020-07-21] MEDS: ACETAMINOPHEN 325 MG TABLET PO PRN ×3 (01:33→16:14)
[2020-07-21] MEDS: metroNIDAZOLE 500 MG/100 ML 500 MG/100 ML BAG IV SCH ×3 (05:41→21:23)
[2020-07-21] MEDS: PANTOPRAZOLE 40 MG TABLET PO SCH (06:10)
[2020-07-21] MEDS: SODIUM CHLORIDE 0.9% 1,000 ML IV SCH ×2 (06:10→16:11)
--- NOTE | 2020-07-21 08:12 | PROVIDER PROGRESS NOTE ---
Assessment/Plan - Problem List (1) C. difficile colitis Assessment/Plan: On vancomycin 125 mg p.o. 4 times daily and Flagyl 500 mg IV every 8 hours. Patient symptoms improved today. He is tolerating clear liquid diet well. His white blood cell count is down to 8. The frequency of his diarrhea decreased. We will continue to monitor. (3) History of asthma Assessment/Plan: Not in exacerbation.DuoNeb, budesonide and formoterol ordered. (4) Hypertension Assessment/Plan: Hydralazine as needed for systolic blood pressure greater than 160. Patient is on irbesartan at home. (5) BPH (benign prostatic hyperplasia) Assessment/Plan: Conclusion/Plan: We will continue patient's tamsulosin. Patient currently has a Ren catheter because of difficulty urinating in the ED. UA was unremarkable. (6) Polymyalgia rheumatica syndrome Assessment/Plan: Still being worked up by the patient's urologist. However the patient was put on prednisone prophylactically which is currently being tapered. He takes 7 mg p.o. daily. In light of possible infectious colitis will hold steroids and NSAIDs - Current Meds Current Meds: Current Medications Generic Name Dose Route Start Last Admin Trade Name Freq PRN Reason Stop Dose Admin Acetaminophen 650 mg 07/20/20 07:27 07/21/20 01:33 Acetaminophen 325 Mg Tablet PO 650 mg Q4HR PRN Administration Pain 1 to 4 Albuterol/Ipratropium 3 ml 07/20/20 15:31 07/20/20 21:18 Ipratropium/Albuterol 3 Ml Neb INH 3 ml Q4HR PRN Administration Wheezing Budesonide 0.5 mg 07/20/20 19:00 07/20/20 21:19 Budesonide 0.5 Mg/2 Ml Neb INH 0.5 mg RTBID SUMI Administration Formoterol Fumarate 20 mcg 07/20/20 19:00 07/20/20 21:18 Formoterol Fumarate Neb 20 Mcg/2 Ml INH 20 mcg RTBID SUMI Administration Metronidazole 500 mg in 100 mls @ 100 mls/hr 07/20/20 12:00 07/21/20 06:41 Flagyl 500 Mg/100 Ml IV Infused Q8HR SUMI Infusion Sodium Chloride 1,000 mls @ 125 mls/hr 07/20/20 15:34 07/21/20 06:10 Normal Saline 0.9% IV 125 mls/hr .Q8H SUMI Administration Pantoprazole Sodium 40 mg 07/21/20 07:00 07/21/20 06:10 Pantoprazole 40 Mg Tablet PO 40 mg QDAC SUMI Administration Sodium Chloride 10 ml 07/20/20 17:00 07/20/20 23:37 Sodium Chloride Flush 0.9% 10 Ml Syringe IVP Not Given 0100,0900,1700 SUMI Tamsulosin HCl 0.4 mg 07/20/20 21:00 07/20/20 21:31 Tamsulosin 0.4 Mg Capsule PO 0.4 mg QPM SUMI Administration Vancomycin HCl 125 mg 07/20/20 17:00 07/20/20 21:30 Vancomycin 125 Mg Capsule PO 125 mg QID SUMI Administration - Lab Result Fish Bone Diagrams: 07/22/20 04:39 07/22/20 04:39 - Additional Planning My Orders: My Active Orders 07/20/20 07:27 Telemetry- [RC] Q4HR Acetaminophen [Tylenol] 650 mg PO Q4HR PRN Sodium Chloride Flush 0.9% [Normal Saline Flush 0.9%] 10 ml IVP PRN PRN 07/20/20 07:28 Activity Orders [RC] Q2HR IO [RC] IOSHIFT Initiate Bowel Care Protocol [RC] .protocol Initiate Line Care Protocol [RC] QSHIFT Initiate Personal Care Protoco [RC] .protocol Vital Signs [RC] 0800,1600,0000 Code Status [OTHERS] Routine Condition of Patient [OTHERS] Routine DVT Prophylaxis [OTHERS] Routine 07/20/20 07:30 SCDs [RC] QSHIFT 07/20/20 12:00 metroNIDAZOLE 500 MG/100 ML [Flagyl 500 mg/100 ml] 500 mg in 100 ml IV Q8HR 07/20/20 13:45 MISC TEST QUEST AMBIENT [REFLAB] Routine 07/20/20 15:31 Nebulizer/MDI Tx. [RC] QID Ipratropium/Albuterol [Duoneb] 3 ml INH Q4HR PRN 07/20/20 15:32 hydrALAZINE INJ [Apresoline Inj] 10 mg IVP Q4H PRN 07/20/20 15:34 Sodium Chloride 0.9% [Normal Saline 0.9%] 1,000 ml IV 125 mls/hr 07/20/20 15:36 Oxygen [Oxygen Therapy] [RC] .PRN 07/20/20 17:00 Sodium Chloride Flush 0.9% [Normal Saline Flush 0.9%] 10 ml IVP 0100,0900,1700 Vancomycin [Vancocin] 125 mg PO QID 07/20/20 19:00 Budesonide [Pulmicort] 0.5 mg INH RTBID Formoterol Fumarate [Perforomist] 20 mcg INH RTBID 07/20/20 21:00 Tamsulosin [Flomax] 0.4 mg PO QPM 07/21/20 07:00 Pantoprazole [Protonix] 40 mg PO QDAC 07/21/20 08:10 BMP - BASIC METABOLIC PANEL [CHEM] Routine CBC - COMP BLD CT W/AUTO DIFF [HEME] Routine 07/21/20 09:00 Enoxaparin [Lovenox] 40 mg SUBQ DAILY 07/22/20 05:00 BMP - BASIC METABOLIC PANEL [CHEM] DAILYLAB CBC - COMP BLD CT W/AUTO DIFF [HEME] DAILYLAB 07/23/20 05:00 BMP - BASIC METABOLIC PANEL [CHEM] DAILYLAB CBC - COMP BLD CT W/AUTO DIFF [HEME] DAILYLAB 07/24/20 05:00 BMP - BASIC METABOLIC PANEL [CHEM] DAILYLAB CBC - COMP BLD CT W/AUTO DIFF [HEME] DAILYLAB 07/25/20 05:00 BMP - BASIC METABOLIC PANEL [CHEM] DAILYLAB CBC - COMP BLD CT W/AUTO DIFF [HEME] DAILYLAB 07/26/20 05:00 BMP - BASIC METABOLIC PANEL [CHEM] DAILYLAB CBC - COMP BLD CT W/AUTO DIFF [HEME] DAILYLAB Subjective - Subjective Patient Reports: Other (Deven reports feeling better today. The frequency of his bowel movements has decreased. He also reports improvement in his abdominal cramps. However he still feels fatigued.) Objective Vital Signs: Vital Signs - 24 hr 07/20/20 07/20/20 07/20/20 10:00 12:10 13:13 Temperature 37.2 C 36.6 C Heart Rate 83 Heart Rate [ 87 Monitoring electrodes] Respiratory 16 14 Rate Blood Pressure 144/78 H Blood Pressure 156/91 H [Right Brachial artery] O2 Saturation 99 97 07/20/20 07/20/2007/20/21 16:00 19:52 21:19 Temperature 37.2 C 36.9 C Heart Rate 83 Heart Rate [ 85 80 Monitoring electrodes] Respiratory 18 18 16 Rate Blood Pressure Blood Pressure 137/90 H 145/83 H [Right Brachial artery] O2 Saturation 98 97 07/21/20 07/21/20 00:00 05:45 Temperature 36.7 C 36.6 C Heart Rate Heart Rate [ 78 72 Monitoring electrodes] Respiratory 20 18 Rate Blood Pressure Blood Pressure 131/85 H 121/71 [Right Brachial artery] O2 Saturation 97 97 Oxygen O2 Source Room air I&O (Last 24 Hrs): Intake and Output Totals x24h 07/19/20 07/20/20 07/21/20 23:59 23:59 23:59 Intake Total 4030.000 1500 Output Total 1650 Balance 2380.000 1500 General: Alert, Oriented x3, Mild distress, Moderate distress HEENT: PERRLA, EOMI Neck: Supple, No JVD Neuro: Alert, Non Focal, Oriented Times 3 Cardiovascular: Regular rate, Normal S1, Normal S2 Respiratory: Chest non-tender, No respiratory distress, Breath sounds nml Abdomen: Soft, Other (Mild tenderness. Hyperresonant.) Extremities: No clubbing, No cyanosis, No edema Skin: No rashes - Results Results: Laboratory Results WBC 16.8 x10^3/uL (4.8-10.8) H 07/20/20 03:25 RBC 4.49 10^6/uL (4.70-6.10) L 07/20/20 03:25 Hgb 14.4 g/dL (14.0-18.0) 07/20/20 03:25 Hct 43.7 % (42.0-52.0) 07/20/20 03:25 MCV 97.3 fL (80.0-94.0) H 07/20/20 03:25 MCH 32.1 pg (27.0-31.0) H 07/20/20 03:25 MCHC 33.0 g/dL (32.0-36.0) 07/20/20 03:25 RDW 12.7 % (12.0-15.0) 07/20/20 03:25 Plt Count 340 10^3/uL (130-450) 07/20/20 03:25 MPV 9.4 fL (7.4-11.4) 07/20/20 03:25 Neut # (Auto) Not Reportable 07/20/20 03:25 Lymph # (Auto) Not Reportable 07/20/20 03:25 Evangeline # (Auto) Not Reportable 07/20/20 03:25 Eos # (Auto) Not Reportable 07/20/20 03:25 Baso # (Auto) Not Reportable 07/20/20 03:25 Absolute Nucleated RBC Not Reportable 07/20/20 03:25 Total Counted 100 07/20/20 03:25 Band Neuts % (Manual) 0 % (0-10) 07/20/20 03:25 Abnorm Lymph % (Manual) 0 % 07/20/20 03:25 Nucleated RBC % Not Reportable 07/20/20 03:25 Neutrophils # (Manual) 12.3 10^3/uL (1.5-6.6) H 07/20/20 03:25 Lymphocytes # (Manual) 2.4 10^3/uL (1.5-3.5) 07/20/20 03:25 Monocytes # (Manual) 2.2 10^3/uL (0.0-1.0) H 07/20/20 03:25 Eosinophils # (Manual) 0.0 10^3/uL (0-0.7) 07/20/20 03:25 Basophils # (Manual) 0.0 10^3/uL (0-0.1) 07/20/20 03:25 Differential Comment MANUAL DIFFERENTIAL 07/20/20 03:25 WBC Morphology NORMAL APPEARANCE (NORMAL) 07/20/20 03:25 Platelet Estimate NORMAL (130-450,000) (NORMAL) 07/20/20 03:25 Platelet Morphology NORMAL APPEARANCE (NORMAL) 07/20/20 03:25 RBC Morph Micro Appear NORMAL APPEARANCE (NORMAL) 07/20/20 03:25 Sodium 140 mmol/L (135-145) 07/20/20 03:25 Potassium 3.8 mmol/L (3.5-5.0) 07/20/20 03:25 Chloride 105 mmol/L (101-111) 07/20/20 03:25 Carbon Dioxide 25 mmol/L (21-32) 07/20/20 03:25 Anion Gap 10.0 (6-13) 07/20/20 03:25 BUN 24 mg/dL (6-20) H 07/20/20 03:25 Creatinine 1.0 mg/dL (0.6-1.2) 07/20/20 03:25 Estimated GFR (MDRD) 75 (>89) L 07/20/20 03:25 Glucose 110 mg/dL (70-100) H 07/20/20 03:25 Calcium 8.9 mg/dL (8.5-10.3) 07/20/20 03:25 Total Bilirubin 1.0 mg/dL (0.2-1.0) 07/20/20 03:25 AST 34 IU/L (10-42) 07/20/20 03:25 ALT 44 IU/L (10-60) 07/20/20 03:25 Alkaline Phosphatase 60 IU/L (42-121) 07/20/20 03:25 Total Protein 7.0 g/dL (6.7-8.2) 07/20/20 03:25 Albumin 4.3 g/dL (3.2-5.5) 07/20/20 03:25 Globulin 2.7 g/dL (2.1-4.2) 07/20/20 03:25 Albumin/Globulin Ratio 1.6 (1.0-2.2) 07/20/20 03:25 Lipase 22 U/L (22-51) 07/20/20 03:25 Urine Color YELLOW 07/20/20 06:18 Urine Clarity CLEAR (CLEAR) 07/20/20 06:18 Urine pH 5.5 PH (5.0-7.5) 07/20/20 06:18 Ur Specific Aldrich <=1.005 (1.002-1.030) 07/20/20 06:18 Urine Protein NEGATIVE mg/dL (NEGATIVE) 07/20/20 06:18 Urine Glucose (UA) NEGATIVE mg/dL (NEGATIVE) 07/20/20 06:18 Urine Ketones NEGATIVE mg/dL (NEGATIVE) 07/20/20 06:18 Urine Occult Blood NEGATIVE (NEGATIVE) 07/20/20 06:18 Urine Nitrite NEGATIVE (NEGATIVE) 07/20/20 06:18 Urine Bilirubin MODERATE (NEGATIVE) H 07/20/20 06:18 Urine Urobilinogen 0.2 (NORMAL) E.U./dL (NORMAL) 07/20/20 06:18 Ur Leukocyte Esterase NEGATIVE (NEGATIVE) 07/20/20 06:18 Ur Microscopic Review NOT INDICATED 07/20/20 06:18 Urine Culture Comments NOT INDICATED 07/20/20 06:18 Nasal Adenovirus (PCR) NOT DETECTED 07/20/20 08:50 Nasal B. parapertussis DNA (PCR) NOT DETECTED 07/20/20 08:50 Nasal Coronavir 229E PCR NOT DETECTED 07/20/20 08:50 Nasal Coronavir HKU1 PCR NOT DETECTED 07/20/20 08:50 Nasal Coronavir NL63 PCR NOT DETECTED 07/20/20 08:50 Nasal Coronavir OC43 PCR NOT DETECTED 07/20/20 08:50 Nasal Enterovir/Rhinovir PCR NOT DETECTED 07/20/20 08:50 Nasal Influenza B PCR NOT DETECTED 07/20/20 08:50 Nasal Influenza A PCR NOT DETECTED 07/20/20 08:50 Nasal Parainfluen 1 PCR NOT DETECTED 07/20/20 08:50 Nasal Parainfluen 2 PCR NOT DETECTED 07/20/20 08:50 Nasal Parainfluen 3 PCR NOT DETECTED 07/20/20 08:50 Nasal Parainfluen 4 PCR NOT DETECTED 07/20/20 08:50 Nasal RSV (PCR) NOT DETECTED 07/20/20 08:50 Nasal B.pertussis DNA PCR NOT DETECTED 07/20/20 08:50 Nasal C.pneumoniae (PCR) NOT DETECTED 07/20/20 08:50 Bacilio Human Metapneumo PCR NOT DETECTED 07/20/20 08:50 Nasal M.pneumoniae (PCR) NOT DETECTED 07/20/20 08:50 Nasal SARS-CoV-2 (PCR) NOT DETECTED 07/20/20 08:50 Stl C. diff Tox B Gene POSITIVE (NEGATIVE) A* 07/20/20 13:45 ABX Reporting Has patient been on IV antibiotics over the past 48 hours?: Yes
[2020-07-21] MEDS: ENOXAPARIN 40 MG/0.4 ML SYRINGE SUBQ SCH (08:49)
[2020-07-21] MEDS: SODIUM CHLORIDE FLUSH 0.9% 10 ML SYRINGE IVP SCH ×2 (08:49→16:15)
[2020-07-21] MEDS: VANCOMYCIN 125 MG CAPSULE PO SCH ×4 (08:49→21:23)
[2020-07-21 09:29] LABS: BASOPHILS % (AUTO) 0.5 %; EOSINOPHILS # (AUTO) 0.2 10^3/uL (0.0-0.7); EOSINOPHILS % (AUTO) 2.6 %; HGB - HEMOGLOBIN 12.8 g/dL (14.0-18.0); LYMPHOCYTES # (AUTO) 1.9 10^3/uL (1.5-3.5); LYMPHOCYTES % (AUTO) 23.8 %; MEAN CORPUSCULAR HEMOGLOBIN 32.9 pg (27.0-31.0); MEAN CORPUSCULAR HGB CONC 34.2 g/dL (32.0-36.0); MEAN CORPUSCULAR VOLUME 96.1 fL (80.0-94.0); MEAN PLATELET VOLUME 9.3 fL (7.4-11.4); MONOCYTES # (AUTO) 1.1 10^3/uL (0.0-1.0); MONOCYTES % (AUTO) 13.6 %; NEUTROPHILS # (AUTO) 4.7 10^3/uL (1.5-6.6); NEUTROPHILS % (AUTO) 59.3 %; PLT - PLATELET COUNT 269 10^3/uL (130-450); RED BLOOD COUNT 3.89 10^6/uL (4.70-6.10); RED CELL DISTRIBUTION WIDTH 12.5 % (12.0-15.0)
[2020-07-21 09:35] LABS: CALCIUM 8.2 mg/dL (8.5-10.3)
[2020-07-21] MEDS: IPRATROPIUM/ALBUTEROL 3 ML NEB INH PRN ×2 (10:15→19:45)
[2020-07-21] MEDS: BUDESONIDE 0.5 MG/2 ML NEB INH SCH ×2 (10:15→19:45)
[2020-07-21] MEDS: FORMOTEROL FUMARATE NEB 20 MCG/2 ML INH SCH ×2 (10:15→19:45)
--- NOTE | 2020-07-21 11:20 | PHARMACY PROGRESS NOTE ---
- Best Possible Medication History Admit Date and Time: 07/20/20 0727 Processed by: Pharmacy Medication History completed: Yes Patient Interview: Completed Secondary Source(s): Physician records, Insurance records As the person ultimately responsible for medication therapy, providers are able to order a medication from an existing home medication list in [facility] via the "Reconcile Routine" prior to Confirmation of that medication by director of academic support. Such practice is discouraged except when the physician, in their clinical judgment, deems that a medical need exists for a medication without regard to previous use.
[2020-07-21] MEDS: TAMSULOSIN 0.4 MG CAPSULE PO SCH (21:23)
[2020-07-22] MEDS: SODIUM CHLORIDE FLUSH 0.9% 10 ML SYRINGE IVP SCH ×3 (00:39→15:42)
[2020-07-22] MEDS: ACETAMINOPHEN 325 MG TABLET PO PRN ×4 (00:59→21:32)
[2020-07-22] MEDS: SODIUM CHLORIDE 0.9% 1,000 ML IV SCH ×3 (01:00→18:26)
[2020-07-22 05:04] LABS: BASOPHILS % (AUTO) 0.5 %; EOSINOPHILS # (AUTO) 0.2 10^3/uL (0.0-0.7); EOSINOPHILS % (AUTO) 2.7 %; HGB - HEMOGLOBIN 11.4 g/dL (14.0-18.0); LYMPHOCYTES # (AUTO) 2.3 10^3/uL (1.5-3.5); LYMPHOCYTES % (AUTO) 28.4 %; MEAN CORPUSCULAR HEMOGLOBIN 31.8 pg (27.0-31.0); MEAN CORPUSCULAR HGB CONC 33.2 g/dL (32.0-36.0); MEAN CORPUSCULAR VOLUME 95.5 fL (80.0-94.0); MEAN PLATELET VOLUME 9.2 fL (7.4-11.4); MONOCYTES % (AUTO) 12.6 %; NEUTROPHILS # (AUTO) 4.5 10^3/uL (1.5-6.6); NEUTROPHILS % (AUTO) 55.3 %; PLT - PLATELET COUNT 264 10^3/uL (130-450); RED BLOOD COUNT 3.59 10^6/uL (4.70-6.10); RED CELL DISTRIBUTION WIDTH 12.5 % (12.0-15.0); WHITE BLOOD COUNT 8.2 x10^3/uL (4.8-10.8)
[2020-07-22 05:14] LABS: CALCIUM 7.9 mg/dL (8.5-10.3); CREATININE 0.9 mg/dL (0.6-1.2)
[2020-07-22] MEDS: IPRATROPIUM/ALBUTEROL 3 ML NEB INH PRN ×2 (07:16→20:40)
[2020-07-22] MEDS: BUDESONIDE 0.5 MG/2 ML NEB INH SCH ×2 (07:16→20:40)
[2020-07-22] MEDS: FORMOTEROL FUMARATE NEB 20 MCG/2 ML INH SCH ×2 (07:16→20:40)
[2020-07-22] MEDS: PANTOPRAZOLE 40 MG TABLET PO SCH (07:23)
[2020-07-22] MEDS: metroNIDAZOLE 500 MG/100 ML 500 MG/100 ML BAG IV SCH (07:23)
[2020-07-22] MEDS: VANCOMYCIN 125 MG CAPSULE PO SCH ×4 (09:19→21:32)
[2020-07-22] MEDS: ENOXAPARIN 40 MG/0.4 ML SYRINGE SUBQ SCH (09:20)
--- NOTE | 2020-07-22 18:31 | PROVIDER PROGRESS NOTE ---
Assessment/Plan - Problem List (1) C. difficile colitis Assessment/Plan: On vancomycin 125 mg p.o. 4 times. Flagyl discontinued today. Patient symptoms improved today. He is tolerating clear liquid diet well. His white blood cell count is down to 8.2. The frequency of his diarrhea continues to decrease. Patient's diet was advanced to full today. He is tolerating it okay We will continue to monitor. Anticipated discharge tomorrow (3) History of asthma Assessment/Plan: Not in exacerbation.DuoNeb, budesonide and formoterol ordered. (4) Hypertension Assessment/Plan: Hydralazine as needed for systolic blood pressure greater than 160. Patient is on irbesartan at home. (5) BPH (benign prostatic hyperplasia) Assessment/Plan: We will continue patient's tamsulosin. Patient currently has a Ren catheter because of difficulty urinating in the ED. UA was unremarkable. (6) Polymyalgia rheumatica syndrome Assessment/Plan: Still being worked up by the patient's urologist. However the patient was put on prednisone prophylactically which is currently being tapered. He takes 7 mg p.o. daily. In light of possible infectious colitis will hold steroids and NSAIDs - Current Meds Current Meds: Current Medications Generic Name Dose Route Start Last Admin Trade Name Freq PRN Reason Stop Dose Admin Acetaminophen 650 mg 07/20/20 07:27 07/22/20 15:42 Acetaminophen 325 Mg Tablet PO 650 mg Q4HR PRN Administration Pain 1 to 4 Albuterol/Ipratropium 3 ml 07/20/20 15:31 07/22/20 07:16 Ipratropium/Albuterol 3 Ml Neb INH 3 ml Q4HR PRN Administration Wheezing Budesonide 0.5 mg 07/20/20 19:00 07/22/20 07:16 Budesonide 0.5 Mg/2 Ml Neb INH 0.5 mg RTBID SUMI Administration Enoxaparin Sodium 40 mg 07/21/20 09:00 07/22/20 09:20 Enoxaparin 40 Mg/0.4 Ml Syringe SUBQ 40 mg DAILY SUMI Administration Formoterol Fumarate 20 mcg 07/20/20 19:00 07/22/20 07:16 Formoterol Fumarate Neb 20 Mcg/2 Ml INH 20 mcg RTBID SUMI Administration Sodium Chloride 1,000 mls @ 125 mls/hr 07/20/20 15:34 07/22/20 18:26 Normal Saline 0.9% IV 125 mls/hr .Q8H SUMI Administration Pantoprazole Sodium 40 mg 07/21/20 07:00 07/22/20 07:23 Pantoprazole 40 Mg Tablet PO 40 mg QDAC SUMI Administration Sodium Chloride 10 ml 07/20/20 17:00 07/22/20 15:42 Sodium Chloride Flush 0.9% 10 Ml Syringe IVP Not Given 0100,0900,1700 SUMI Tamsulosin HCl 0.4 mg 07/20/20 21:00 07/21/20 21:23 Tamsulosin 0.4 Mg Capsule PO 0.4 mg QPM SUMI Administration Vancomycin HCl 125 mg 07/20/20 17:00 07/22/20 17:12 Vancomycin 125 Mg Capsule PO 125 mg QID SUMI Administration - Lab Result Fish Bone Diagrams: 07/22/20 04:39 07/22/20 04:39 - Additional Planning My Orders: My Active Orders 07/22/20 Lunch Regular Diet [DIET] 07/23/20 05:00 BMP - BASIC METABOLIC PANEL [CHEM] DAILYLAB CBC - COMP BLD CT W/AUTO DIFF [HEME] DAILYLAB 07/24/20 05:00 BMP - BASIC METABOLIC PANEL [CHEM] DAILYLAB CBC - COMP BLD CT W/AUTO DIFF [HEME] DAILYLAB 07/25/20 05:00 BMP - BASIC METABOLIC PANEL [CHEM] DAILYLAB CBC - COMP BLD CT W/AUTO DIFF [HEME] DAILYLAB 07/26/20 05:00 BMP - BASIC METABOLIC PANEL [CHEM] DAILYLAB CBC - COMP BLD CT W/AUTO DIFF [HEME] DAILYLAB Subjective - Subjective Patient Reports: Other (Patient reported feeling better today. His diet was advanced to full. He tolerated all right for the most part but was still experiencing some abdominal cramps. He is still slightly weak. Ren catheter was removed today and patient is able to urinate on his own. Decreased frequency of bowel m) Objective Vital Signs: Vital Signs - 24 hr 07/21/20 07/21/20 07/22/20 19:45 19:53 00:56 Temperature 37.1 C 36.8 C 36.8 C Heart Rate 545 H Heart Rate [ 62 63 Monitoring electrodes] Respiratory 18 18 17 Rate Blood Pressure 119/70 120/62 [Right Brachial artery] O2 Saturation 100 96 98 07/22/20 07/22/20 07/22/20 04:43 07:19 09:00 Temperature 36.4 C L 36.6 C Heart Rate 58 L Heart Rate [ 63 58 L Monitoring electrodes] Respiratory 16 16 17 Rate Blood Pressure 124/74 125/70 [Right Brachial artery] O2 Saturation 96 97 07/22/20 07/22/20 13:00 16:04 Temperature 36.7 C Heart Rate Heart Rate [ 65 62 Monitoring electrodes] Respiratory 19 18 Rate Blood Pressure 145/66 H 121/68 [Right Brachial artery] O2 Saturation 99 98 Oxygen O2 Source Room air I&O (Last 24 Hrs): Intake and Output Totals x24h 07/20/20 07/21/20 07/22/20 23:59 23:59 23:59 Intake Total 4030.000 4306.667 3046.250 Output Total 7153 775 0072 Balance 2380.000 3356.667 1096.250 General: Alert, Oriented x3, Cooperative, Mild distress, Moderate distress HEENT: PERRLA, EOMI Neck: Supple, No JVD Neuro: Alert, Non Focal, Oriented Times 3 Cardiovascular: Regular rate, Normal S1, Normal S2 Respiratory: Chest non-tender, No respiratory distress, Breath sounds nml Abdomen: Normal bowel sounds, Soft, Other (Mild to moderate tenderness to palpation) Extremities: No clubbing, No cyanosis Skin: No rashes - Results Results: Laboratory Results WBC 8.2 x10^3/uL (4.8-10.8) 07/22/20 04:39 RBC 3.59 10^6/uL (4.70-6.10) L 07/22/20 04:39 Hgb 11.4 g/dL (14.0-18.0) L 07/22/20 04:39 Hct 34.3 % (42.0-52.0) L 07/22/20 04:39 MCV 95.5 fL (80.0-94.0) H 07/22/20 04:39 MCH 31.8 pg (27.0-31.0) H 07/22/20 04:39 MCHC 33.2 g/dL (32.0-36.0) 07/22/20 04:39 RDW 12.5 % (12.0-15.0) 07/22/20 04:39 Plt Count 264 10^3/uL (130-450) 07/22/20 04:39 MPV 9.2 fL (7.4-11.4) 07/22/20 04:39 Neut # (Auto) 4.5 10^3/uL (1.5-6.6) 07/22/20 04:39 Lymph # (Auto) 2.3 10^3/uL (1.5-3.5) 07/22/20 04:39 [place] # (Auto) 1.0 10^3/uL (0.0-1.0) 07/22/20 04:39 Eos # (Auto) 0.2 10^3/uL (0.0-0.7) 07/22/20 04:39 Baso # (Auto) 0.0 10^3/uL (0.0-0.1) 07/22/20 04:39 Absolute Nucleated RBC 0.00 x10^3/uL 07/22/20 04:39 Total Counted 100 07/20/20 03:25 Band Neuts % (Manual) 0 % (0-10) 07/20/20 03:25 Abnorm Lymph % (Manual) 0 % 07/20/20 03:25 Nucleated RBC % 0.0 /100WBC 07/22/20 04:39 Neutrophils # (Manual) 12.3 10^3/uL (1.5-6.6) H 07/20/20 03:25 Lymphocytes # (Manual) 2.4 10^3/uL (1.5-3.5) 07/20/20 03:25 Monocytes # (Manual) 2.2 10^3/uL (0.0-1.0) H 07/20/20 03:25 Eosinophils # (Manual) 0.0 10^3/uL (0-0.7) 07/20/20 03:25 Basophils # (Manual) 0.0 10^3/uL (0-0.1) 07/20/20 03:25 Differential Comment MANUAL DIFFERENTIAL 07/20/20 03:25 WBC Morphology NORMAL APPEARANCE (NORMAL) 07/20/20 03:25 Platelet Estimate NORMAL (130-450,000) (NORMAL) 07/20/20 03:25 Platelet Morphology NORMAL APPEARANCE (NORMAL) 07/20/20 03:25 RBC Morph Micro Appear NORMAL APPEARANCE (NORMAL) 07/20/20 03:25 Sodium 138 mmol/L (135-145) 07/22/20 04:39 Potassium 3.3 mmol/L (3.5-5.0) L 07/22/20 04:39 Chloride 111 mmol/L (101-111) 07/22/20 04:39 Carbon Dioxide 21 mmol/L (21-32) 07/22/20 04:39 Anion Gap 6.0 (6-13) 07/22/20 04:39 BUN 9 mg/dL (6-20) 07/22/20 04:39 Creatinine 0.9 mg/dL (0.6-1.2) 07/22/20 04:39 Estimated GFR (MDRD) 84 (>89) L 07/22/20 04:39 Glucose 100 mg/dL (70-100) 07/22/20 04:39 Calcium 7.9 mg/dL (8.5-10.3) L 07/22/20 04:39 Total Bilirubin 1.0 mg/dL (0.2-1.0) 07/20/20 03:25 AST 34 IU/L (10-42) 07/20/20 03:25 ALT 44 IU/L (10-60) 07/20/20 03:25 Alkaline Phosphatase 60 IU/L (42-121) 07/20/20 03:25 Total Protein 7.0 g/dL (6.7-8.2) 07/20/20 03:25 Albumin 4.3 g/dL (3.2-5.5) 07/20/20 03:25 Globulin 2.7 g/dL (2.1-4.2) 07/20/20 03:25 Albumin/Globulin Ratio 1.6 (1.0-2.2) 07/20/20 03:25 Lipase 22 U/L (22-51) 07/20/20 03:25 Urine Color YELLOW 07/20/20 06:18 Urine Clarity CLEAR (CLEAR) 07/20/20 06:18 Urine pH 5.5 PH (5.0-7.5) 07/20/20 06:18 Ur Specific [place] <=1.005 (1.002-1.030) 07/20/20 06:18 Urine Protein NEGATIVE mg/dL (NEGATIVE) 07/20/20 06:18 Urine Glucose (UA) NEGATIVE mg/dL (NEGATIVE) 07/20/20 06:18 Urine Ketones NEGATIVE mg/dL (NEGATIVE) 07/20/20 06:18 Urine Occult Blood NEGATIVE (NEGATIVE) 07/20/20 06:18 Urine Nitrite NEGATIVE (NEGATIVE) 07/20/20 06:18 Urine Bilirubin MODERATE (NEGATIVE) H 07/20/20 06:18 Urine Urobilinogen 0.2 (NORMAL) E.U./dL (NORMAL) 07/20/20 06:18 Ur Leukocyte Esterase NEGATIVE (NEGATIVE) 07/20/20 06:18 Ur Microscopic Review NOT INDICATED 07/20/20 06:18 Urine Culture Comments NOT INDICATED 07/20/20 06:18 Nasal Adenovirus (PCR) NOT DETECTED 07/20/20 08:50 Nasal B. parapertussis DNA (PCR) NOT DETECTED 07/20/20 08:50 Nasal Coronavir 229E PCR NOT DETECTED 07/20/20 08:50 Nasal Coronavir HKU1 PCR NOT DETECTED 07/20/20 08:50 Nasal Coronavir NL63 PCR NOT DETECTED 07/20/20 08:50 Nasal Coronavir OC43 PCR NOT DETECTED 07/20/20 08:50 Nasal Enterovir/Rhinovir PCR NOT DETECTED 07/20/20 08:50 Nasal Influenza B PCR NOT DETECTED 07/20/20 08:50 Nasal Influenza A PCR NOT DETECTED 07/20/20 08:50 Nasal Parainfluen 1 PCR NOT DETECTED 07/20/20 08:50 Nasal Parainfluen 2 PCR NOT DETECTED 07/20/20 08:50 Nasal Parainfluen 3 PCR NOT DETECTED 07/20/20 08:50 Nasal Parainfluen 4 PCR NOT DETECTED 07/20/20 08:50 Nasal RSV (PCR) NOT DETECTED 07/20/20 08:50 Nasal B.pertussis DNA PCR NOT DETECTED 07/20/20 08:50 Nasal C.pneumoniae (PCR) NOT DETECTED 07/20/20 08:50 [place] Human Metapneumo PCR NOT DETECTED 07/20/20 08:50 Nasal M.pneumoniae (PCR) NOT DETECTED 07/20/20 08:50 Nasal SARS-CoV-2 (PCR) NOT DETECTED 07/20/20 08:50 Stl C. diff Tox B Gene POSITIVE (NEGATIVE) A* 07/20/20 13:45 ABX Reporting Has patient been on IV antibiotics over the past 48 hours?: Yes
[2020-07-22] MEDS: TAMSULOSIN 0.4 MG CAPSULE PO SCH (21:32)
[2020-07-22] MEDS ORDERED: POTASSIUM CHLORIDE 20 MEQ TABLET PO ONE (23:17)
[2020-07-23] MEDS: SODIUM CHLORIDE FLUSH 0.9% 10 ML SYRINGE IVP SCH ×4 (01:38→23:59)
[2020-07-23] MEDS: SODIUM CHLORIDE 0.9% 1,000 ML IV SCH ×3 (02:13→23:52)
[2020-07-23] MEDS: ACETAMINOPHEN 325 MG TABLET PO PRN ×3 (02:20→20:23)
[2020-07-23 05:45] LABS: BASOPHILS # (AUTO) 0.1 10^3/uL (0.0-0.1); BASOPHILS % (AUTO) 0.6 %; EOSINOPHILS # (AUTO) 0.3 10^3/uL (0.0-0.7); EOSINOPHILS % (AUTO) 3.1 %; LYMPHOCYTES # (AUTO) 2.3 10^3/uL (1.5-3.5); LYMPHOCYTES % (AUTO) 27.1 %; MEAN CORPUSCULAR HEMOGLOBIN 31.8 pg (27.0-31.0); MEAN CORPUSCULAR HGB CONC 33.5 g/dL (32.0-36.0); MEAN PLATELET VOLUME 9.3 fL (7.4-11.4); MONOCYTES % (AUTO) 12.2 %; NEUTROPHILS # (AUTO) 4.7 10^3/uL (1.5-6.6); NEUTROPHILS % (AUTO) 56.3 %; PLT - PLATELET COUNT 249 10^3/uL (130-450); RED BLOOD COUNT 3.77 10^6/uL (4.70-6.10); RED CELL DISTRIBUTION WIDTH 12.6 % (12.0-15.0); WHITE BLOOD COUNT 8.4 x10^3/uL (4.8-10.8)
[2020-07-23 05:57] LABS: CALCIUM 7.7 mg/dL (8.5-10.3); CREATININE 0.9 mg/dL (0.6-1.2)
[2020-07-23] MEDS: PANTOPRAZOLE 40 MG TABLET PO SCH (06:09)
[2020-07-23] MEDS: BUDESONIDE 0.5 MG/2 ML NEB INH SCH ×2 (08:31→20:44)
[2020-07-23] MEDS: FORMOTEROL FUMARATE NEB 20 MCG/2 ML INH SCH ×2 (08:31→20:44)
[2020-07-23] MEDS: VANCOMYCIN 125 MG CAPSULE PO SCH ×4 (11:28→20:23)
[2020-07-23] MEDS: ENOXAPARIN 40 MG/0.4 ML SYRINGE SUBQ SCH (11:28)
--- NOTE | 2020-07-23 15:55 | PROVIDER PROGRESS NOTE ---
Assessment/Plan - Problem List (1) C. difficile colitis Assessment/Plan: 07/23 Patient still reported he had 3 times of diarrhea but is significantly reduced diarrhea times from before. Abdominal pain is better controlled. We will continue p.o. vancomycin Continue intravenous IV fluids, Continue laboratory and vital signs monitor (3) History of asthma Assessment/Plan: stable, Not in exacerbation. DuoNeb, budesonide and formoterol ordered. (4) Hypertension Assessment/Plan: stable, Hydralazine as needed for systolic blood pressure greater than 160. Patient is on irbesartan at home. (5) BPH (benign prostatic hyperplasia) Assessment/Plan: continue patient's tamsulosin. d/c barbosa (6) Polymyalgia rheumatica syndrome continue hold steroids and NSAIDs because of pt's current infection, followup pt's truck trailer mechanic - Current Meds Current Meds: Current Medications Generic Name Dose Route Start Last Admin Trade Name Freq PRN Reason Stop Dose Admin Acetaminophen 650 mg 07/20/20 07:27 07/23/20 15:46 Acetaminophen 325 Mg Tablet PO 650 mg Q4HR PRN Administration Pain 1 to 4 Albuterol/Ipratropium 3 ml 07/20/20 15:31 07/22/20 20:40 Ipratropium/Albuterol 3 Ml Neb INH 3 ml Q4HR PRN Administration Wheezing Budesonide 0.5 mg 07/20/20 19:00 07/23/20 08:31 Budesonide 0.5 Mg/2 Ml Neb INH 0.5 mg RTBID SUMI Administration Enoxaparin Sodium 40 mg 07/21/20 09:00 07/23/20 11:28 Enoxaparin 40 Mg/0.4 Ml Syringe SUBQ 40 mg DAILY SUMI Administration Formoterol Fumarate 20 mcg 07/20/20 19:00 07/23/20 08:31 Formoterol Fumarate Neb 20 Mcg/2 Ml INH 20 mcg RTBID SUMI Administration Sodium Chloride 1,000 mls @ 83.3 mls/hr 07/23/20 08:24 07/23/20 11:29 Normal Saline 0.9% IV 83.3 mls/hr .Q12H1M SUMI Administration Pantoprazole Sodium 40 mg 07/21/20 07:00 07/23/20 06:09 Pantoprazole 40 Mg Tablet PO 40 mg QDAC SUMI Administration Sodium Chloride 10 ml 07/20/20 17:00 07/23/20 15:46 Sodium Chloride Flush 0.9% 10 Ml Syringe IVP Not Given 0100,0900,1700 ON LICENSE OF [facility] Tamsulosin HCl 0.4 mg 07/20/20 21:00 07/22/20 21:32 Tamsulosin 0.4 Mg Capsule PO 0.4 mg QPM SUMI Administration Vancomycin HCl 125 mg 07/20/20 17:00 07/23/20 13:50 Vancomycin 125 Mg Capsule PO 125 mg QID SUMI Administration - Lab Result Fish Bone Diagrams: 07/23/20 05:25 07/23/20 05:25 - Additional Planning My Orders: My Active Orders 07/23/20 08:24 Sodium Chloride 0.9% [Normal Saline 0.9%] 1,000 ml IV 83.3 mls/hr Subjective - Subjective Patient Reports: Feeling Better Objective Vital Signs: Vital Signs - 24 hr 07/22/20 07/22/20 07/22/20 16:04 20:43 21:00 Temperature 36.7 C 36.4 C L Heart Rate 66 Heart Rate [ 62 70 Monitoring electrodes] Respiratory 18 20 20 Rate Blood Pressure 121/68 148/81 H [Right Brachial artery] O2 Saturation 98 96 07/23/20 07/23/20 07/23/20 01:00 04:30 08:00 Temperature 36.7 C 36.8 C Heart Rate Heart Rate [ 61 67 69 Monitoring electrodes] Respiratory 16 18 16 Rate Blood Pressure 125/77 130/81 H 141/88 H [Right Brachial artery] O2 Saturation 95 95 98 07/23/20 07/23/20 07/23/20 08:31 11:18 15:42 Temperature 36.6 C 36.9 C Heart Rate 72 Heart Rate [ 66 70 Monitoring electrodes] Respiratory 18 16 18 Rate Blood Pressure 143/90 H 135/83 H [Right Brachial artery] O2 Saturation 98 95 Oxygen O2 Source Room air I&O (Last 24 Hrs): Intake and Output Totals x24h 07/21/20 07/22/20 07/23/20 23:59 23:59 23:59 Intake Total 4306.667 3046.250 2432.917 Output Total 950 2400 1100 Balance 3356.667 640.185 6763.917 General: Alert, Oriented x3, Cooperative, No acute distress HEENT: Atraumatic, PERRLA Neck: Supple Lymphatic: no adenopathy Neuro: Alert, Non Focal, Oriented Times 3 Cardiovascular: Regular rate, Normal S1, Normal S2 Respiratory: Chest non-tender, No respiratory distress, Breath sounds nml Abdomen: Normal bowel sounds, Soft, No tenderness Extremities: Normal pulses - Results Results: Laboratory Results WBC 8.4 x10^3/uL (4.8-10.8) 07/23/20 05:25 RBC 3.77 10^6/uL (4.70-6.10) L 07/23/20 05:25 Hgb 12.0 g/dL (14.0-18.0) L 07/23/20 05:25 Hct 35.8 % (42.0-52.0) L 07/23/20 05:25 MCV 95.0 fL (80.0-94.0) H 07/23/20 05:25 MCH 31.8 pg (27.0-31.0) H 07/23/20 05:25 MCHC 33.5 g/dL (32.0-36.0) 07/23/20 05:25 RDW 12.6 % (12.0-15.0) 07/23/20 05:25 Plt Count 249 10^3/uL (130-450) 07/23/20 05:25 MPV 9.3 fL (7.4-11.4) 07/23/20 05:25 Neut # (Auto) 4.7 10^3/uL (1.5-6.6) 07/23/20 05:25 Lymph # (Auto) 2.3 10^3/uL (1.5-3.5) 07/23/20 05:25 [place] # (Auto) 1.0 10^3/uL (0.0-1.0) 07/23/20 05:25 Eos # (Auto) 0.3 10^3/uL (0.0-0.7) 07/23/20 05:25 Baso # (Auto) 0.1 10^3/uL (0.0-0.1) 07/23/20 05:25 Absolute Nucleated RBC 0.00 x10^3/uL 07/23/20 05:25 Total Counted 100 07/20/20 03:25 Band Neuts % (Manual) 0 % (0-10) 07/20/20 03:25 Abnorm Lymph % (Manual) 0 % 07/20/20 03:25 Nucleated RBC % 0.0 /100WBC 07/23/20 05:25 Neutrophils # (Manual) 12.3 10^3/uL (1.5-6.6) H 07/20/20 03:25 Lymphocytes # (Manual) 2.4 10^3/uL (1.5-3.5) 07/20/20 03:25 Monocytes # (Manual) 2.2 10^3/uL (0.0-1.0) H 07/20/20 03:25 Eosinophils # (Manual) 0.0 10^3/uL (0-0.7) 07/20/20 03:25 Basophils # (Manual) 0.0 10^3/uL (0-0.1) 07/20/20 03:25 Differential Comment MANUAL DIFFERENTIAL 07/20/20 03:25 WBC Morphology NORMAL APPEARANCE (NORMAL) 07/20/20 03:25 Platelet Estimate NORMAL (130-450,000) (NORMAL) 07/20/20 03:25 Platelet Morphology NORMAL APPEARANCE (NORMAL) 07/20/20 03:25 RBC Morph Micro Appear NORMAL APPEARANCE (NORMAL) 07/20/20 03:25 Sodium 138 mmol/L (135-145) 07/23/20 05:25 Potassium 3.6 mmol/L (3.5-5.0) 07/23/20 05:25 Chloride 111 mmol/L (101-111) 07/23/20 05:25 Carbon Dioxide 21 mmol/L (21-32) 07/23/20 05:25 Anion Gap 6.0 (6-13) 07/23/20 05:25 BUN 6 mg/dL (6-20) 07/23/20 05:25 Creatinine 0.9 mg/dL (0.6-1.2) 07/23/20 05:25 Estimated GFR (MDRD) 84 (>89) L 07/23/20 05:25 Glucose 97 mg/dL (70-100) 07/23/20 05:25 Calcium 7.7 mg/dL (8.5-10.3) L 07/23/20 05:25 Total Bilirubin 1.0 mg/dL (0.2-1.0) 07/20/20 03:25 AST 34 IU/L (10-42) 07/20/20 03:25 ALT 44 IU/L (10-60) 07/20/20 03:25 Alkaline Phosphatase 60 IU/L (42-121) 07/20/20 03:25 Total Protein 7.0 g/dL (6.7-8.2) 07/20/20 03:25 Albumin 4.3 g/dL (3.2-5.5) 07/20/20 03:25 Globulin 2.7 g/dL (2.1-4.2) 07/20/20 03:25 Albumin/Globulin Ratio 1.6 (1.0-2.2) 07/20/20 03:25 Lipase 22 U/L (22-51) 07/20/20 03:25 Urine Color YELLOW 07/20/20 06:18 Urine Clarity CLEAR (CLEAR) 07/20/20 06:18 Urine pH 5.5 PH (5.0-7.5) 07/20/20 06:18 Ur Specific [place] <=1.005 (1.002-1.030) 07/20/20 06:18 Urine Protein NEGATIVE mg/dL (NEGATIVE) 07/20/20 06:18 Urine Glucose (UA) NEGATIVE mg/dL (NEGATIVE) 07/20/20 06:18 Urine Ketones NEGATIVE mg/dL (NEGATIVE) 07/20/20 06:18 Urine Occult Blood NEGATIVE (NEGATIVE) 07/20/20 06:18 Urine Nitrite NEGATIVE (NEGATIVE) 07/20/20 06:18 Urine Bilirubin MODERATE (NEGATIVE) H 07/20/20 06:18 Urine Urobilinogen 0.2 (NORMAL) E.U./dL (NORMAL) 07/20/20 06:18 Ur Leukocyte Esterase NEGATIVE (NEGATIVE) 07/20/20 06:18 Ur Microscopic Review NOT INDICATED 07/20/20 06:18 Urine Culture Comments NOT INDICATED 07/20/20 06:18 Nasal Adenovirus (PCR) NOT DETECTED 07/20/20 08:50 Nasal B. parapertussis DNA (PCR) NOT DETECTED 07/20/20 08:50 Nasal Coronavir 229E PCR NOT DETECTED 07/20/20 08:50 Nasal Coronavir HKU1 PCR NOT DETECTED 07/20/20 08:50 Nasal Coronavir NL63 PCR NOT DETECTED 07/20/20 08:50 Nasal Coronavir OC43 PCR NOT DETECTED 07/20/20 08:50 Nasal Enterovir/Rhinovir PCR NOT DETECTED 07/20/20 08:50 Nasal Influenza B PCR NOT DETECTED 07/20/20 08:50 Nasal Influenza A PCR NOT DETECTED 07/20/20 08:50 Nasal Parainfluen 1 PCR NOT DETECTED 07/20/20 08:50 Nasal Parainfluen 2 PCR NOT DETECTED 07/20/20 08:50 Nasal Parainfluen 3 PCR NOT DETECTED 07/20/20 08:50 Nasal Parainfluen 4 PCR NOT DETECTED 07/20/20 08:50 Nasal RSV (PCR) NOT DETECTED 07/20/20 08:50 Nasal B.pertussis DNA PCR NOT DETECTED 07/20/20 08:50 Nasal C.pneumoniae (PCR) NOT DETECTED 07/20/20 08:50 [place] Human Metapneumo PCR NOT DETECTED 07/20/20 08:50 Nasal M.pneumoniae (PCR) NOT DETECTED 07/20/20 08:50 Nasal SARS-CoV-2 (PCR) NOT DETECTED 07/20/20 08:50 Stl C. diff Tox B Gene POSITIVE (NEGATIVE) A* 07/20/20 13:45 ABX Reporting Has patient been on IV antibiotics over the past 48 hours?: Yes Current Medications - Current Medications Current Medications: Active Medications Acetaminophen (Acetaminophen 325 Mg Tablet) 650 mg PO Q4HR PRN PRN Reason: Pain 1 to 4 Last Admin: 07/23/20 15:46 Dose: 650 mg Documented by: Albuterol/Ipratropium (Ipratropium/Albuterol 3 Ml Neb) 3 ml INH Q4HR PRN PRN Reason: Wheezing Last Admin: 07/22/20 20:40 Dose: 3 ml Documented by: Budesonide (Budesonide 0.5 Mg/2 Ml Neb) 0.5 mg INH RTBID SUMI Last Admin: 07/23/20 08:31 Dose: 0.5 mg Documented by: Enoxaparin Sodium (Enoxaparin 40 Mg/0.4 Ml Syringe) 40 mg SUBQ DAILY ON LICENSE OF [facility] Last Admin: 07/23/20 11:28 Dose: 40 mg Documented by: Formoterol Fumarate (Formoterol Fumarate Neb 20 Mcg/2 Ml) 20 mcg INH RTBID SUMI Last Admin: 07/23/20 08:31 Dose: 20 mcg Documented by: Hydralazine HCl (Hydralazine Inj 20 Mg/Ml Vial) 10 mg IVP Q4H PRN PRN Reason: PER PHYSICIAN ORDER Sodium Chloride (Normal Saline 0.9%) 1,000 mls @ 83.3 mls/hr IV .Q12H1M ON LICENSE OF [facility] Last Admin: 07/23/20 11:29 Dose: 83.3 mls/hr Documented by: Pantoprazole Sodium (Pantoprazole 40 Mg Tablet) 40 mg PO QDAC ON LICENSE OF [facility] Last Admin: 07/23/20 06:09 Dose: 40 mg Documented by: Sodium Chloride (Sodium Chloride Flush 0.9% 10 Ml Syringe) 10 ml IVP PRN PRN PRN Reason: NEEDED PER PROVIDER ORDERS Sodium Chloride (Sodium Chloride Flush 0.9% 10 Ml Syringe) 10 ml IVP 0100,0900,1700 ON LICENSE OF [facility] Last Admin: 07/23/20 15:46 Dose: Not Given Documented by: Tamsulosin HCl (Tamsulosin 0.4 Mg Capsule) 0.4 mg PO QPM ON LICENSE OF [facility] Last Admin: 07/22/20 21:32 Dose: 0.4 mg Documented by: Vancomycin HCl (Vancomycin 125 Mg Capsule) 125 mg PO QID ON LICENSE OF [facility] Last Admin: 07/23/20 13:50 Dose: 125 mg Documented by: Albuterol Sulfate [Proair Hfa Inhaler] 1 - 2 puffs INH QID PRN 07/20/20 Budesonide/Formoterol Fumarate [Symbicort 160-4.5 Mcg Inhaler] 1 puffs INH BID 07/20/20 Etodolac [Lodine] 400 mg PO BIDWM 07/20/20 Irbesartan [Avapro] 150 mg PO DAILY 07/20/20 Tamsulosin [Flomax] 0.4 mg PO QPM 07/20/20
[2020-07-23] MEDS ORDERED: ALBUTEROL NEB 2.5 MG/3 ML INH PRN (17:20)
[2020-07-23] MEDS: TAMSULOSIN 0.4 MG CAPSULE PO SCH (20:23)
[2020-07-24] MEDS: ACETAMINOPHEN 325 MG TABLET PO PRN ×2 (02:52→09:11)
[2020-07-24 05:31] LABS: BASOPHILS # (AUTO) 0.1 10^3/uL (0.0-0.1); BASOPHILS % (AUTO) 0.6 %; EOSINOPHILS # (AUTO) 0.4 10^3/uL (0.0-0.7); EOSINOPHILS % (AUTO) 3.7 %; HGB - HEMOGLOBIN 11.9 g/dL (14.0-18.0); LYMPHOCYTES # (AUTO) 2.8 10^3/uL (1.5-3.5); MEAN CORPUSCULAR HEMOGLOBIN 31.9 pg (27.0-31.0); MEAN CORPUSCULAR HGB CONC 33.1 g/dL (32.0-36.0); MEAN CORPUSCULAR VOLUME 96.5 fL (80.0-94.0); MEAN PLATELET VOLUME 9.9 fL (7.4-11.4); MONOCYTES # (AUTO) 1.1 10^3/uL (0.0-1.0); MONOCYTES % (AUTO) 11.2 %; NEUTROPHILS # (AUTO) 5.1 10^3/uL (1.5-6.6); NEUTROPHILS % (AUTO) 54.1 %; PLT - PLATELET COUNT 275 10^3/uL (130-450); RED BLOOD COUNT 3.73 10^6/uL (4.70-6.10); RED CELL DISTRIBUTION WIDTH 12.8 % (12.0-15.0); WHITE BLOOD COUNT 9.5 x10^3/uL (4.8-10.8)
[2020-07-24 05:39] LABS: CALCIUM 8.1 mg/dL (8.5-10.3); CREATININE 0.9 mg/dL (0.6-1.2)
[2020-07-24] MEDS: PANTOPRAZOLE 40 MG TABLET PO SCH (07:05)
[2020-07-24] MEDS ORDERED: POTASSIUM CHLORIDE 20 MEQ TABLET PO ONE (08:44)
[2020-07-24] MEDS: ENOXAPARIN 40 MG/0.4 ML SYRINGE SUBQ SCH (09:11)
[2020-07-24] MEDS: VANCOMYCIN 125 MG CAPSULE PO SCH ×2 (09:11→13:28)
[2020-07-24] MEDS: SODIUM CHLORIDE FLUSH 0.9% 10 ML SYRINGE IVP SCH (09:11)
[2020-07-24] MEDS ORDERED: SACCHAROMYCES BOULARDII 250 MG CAPSULE PO SCH (10:00)
[2020-07-24] MEDS: SODIUM CHLORIDE 0.9% 1,000 ML IV SCH (13:28)
--- NOTE | 2020-07-24 13:41 | Discharge Plan ---
Discharge Plan Problem Reviewed?: Yes Disposition: Home, Self Care Condition: Stable Prescriptions: Vancomycin [Vancocin] 125 mg PO QID #28 capsule Diet: Regular Activity Restrictions: Activity as Tolerated Shower Restrictions: No (fall precaution) Instruction Topics: Clostridium Difficile Infec, Vancomycin oral solution Health Concerns: c.diff colitis Plan of Treatment: you were found to have C.diff colitis in the admission. after treated in hospital, your diarrhea are gradually resolved. you are prescribed another 7 days of oral Vancomycin to finish the treatment course. Care Goals: stabilization and improvement/resolve of your medical problems Assessment: discussed the care plan with you, answer your questions, you understood. Additional Instructions or Follow Up instructions: you may followup with your PCP in one to two weeks. Should your symptoms return or worsen, you may present ER or call 911 for help. No Smoking: If you smoke, Please STOP! Call for help. Follow-up with: Suraj Bobo MD [Primary Care Provider] -
--- NOTE | 2020-07-24 13:49 | DISCHARGE SUMMARY ---
Discharge Summary Admit Date: 07/20/20 Discharge Date: 07/24/20 Discharging Provider: Henry Brito Primary Care Provider: Suraj Alexander Condition at Discharge: Stable Discharge Disposition: 01 Home, Self Care Discharge Facility Name: home - DIAGNOSES Discharge Diagnoses with Status of Each Condition: (1) C. difficile colitis Patient's diarrhea is controlled, patient tolerated regular diet without nausea or vomiting. Patient is prescribed 10 days p.o. vancomycin. (3) History of asthma stable (4) Hypertension stable (5) BPH (benign prostatic hyperplasia) stable (6) Polymyalgia rheumatica syndrome stable. - HPI History of Present Illness: refer from Dr. Thomas's HPI on 07/20/20 Patient is a 64-year-old male with medical history significant for asthma, status post TURP, hypertension and current work-up for PMR but currently on prednisone who presented to the ED with complaint of abdominal cramp/pain and explosive diarrhea for the past 3 days. He thinks it started after he had chili dogs with raw green onions on the. He adds that he really does not tolerate green onions well. The following day he also had pizza with jalapeno peppers on them. Since then he had been going to the bathroom almost every other hour. He reported experiencing chills, shaking at home and breaking out in cold sweats. He denied chest pain, dyspnea or vomiting, however he had been nauseous as well. In the ED work-up included a CT scan of the abdomen pelvis which showed diffuse colitis suggestive of an infectious process. He also had a WBC ogf 16.8. As a result he was presented for admission for further treatment. - HOSPITAL COURSE Hospital Course: Patient was admitted for abdominal cramp/pain and explosive diarrhea. Patient was found to have C. difficile colitis. Patient was treated with PO vancomycin. Patient's diarrhea was gradually improved and better, finally was controlled. Patient was prescribed PO vancomycin for discharge to continue finish the treatment course - ALLERGIES Allergies/Adverse Reactions: Allergies Allergy/AdvReac Type Severity Reaction Status Date / Time morphine Allergy Hallucinati Verified 07/20/20 02:24 ons - MEDICATIONS Home Medications: Ambulatory Orders Medication Instructions Recorded Confirmed Albuterol Sulfate [Proair Hfa 1 - 2 puffs INH QID PRN 07/20/20 07/20/20 Inhaler] Budesonide/Formoterol Fumarate 1 puffs INH BID 07/20/20 07/20/20 [Symbicort 160-4.5 Mcg Inhaler] Etodolac [Lodine] 400 mg PO BIDWM 07/20/20 07/20/20 Irbesartan [Avapro] 150 mg PO DAILY 07/20/20 07/20/20 Tamsulosin [Flomax] 0.4 mg PO QPM 07/20/20 07/20/20 Vancomycin [Vancocin] 125 mg PO QID #28 capsule 07/24/20 - PHYSICAL EXAM AT DISCHARGE General Appearance: positive: No acute distress, Alert. negative: Lethargic Eyes Bilateral: positive: Normal inspection, PERRL, No lid inflammation ENT: positive: ENT inspection nml, No signs of dehydration. negative: Purulent nasal drainage Neck: positive: Nml inspection, Trachea midline. negative: Thyromegaly, Tracheal deviation Respiratory: positive: Chest non-tender, No respiratory distress, Breath sounds nml. negative: Wheezes, Rales, Rhonchi Cardiovascular: positive: Regular rate & rhythm, No murmur. negative: Tachycardia, Bradycardia, Systolic murmur, Diastolic murmur Peripheral Pulses: positive: 2+ Abdomen: positive: Non-tender, Nml bowel sounds, No distention. negative: Tenderness, Guarding, Rebound Back: positive: Nml inspection. negative: CVA tenderness (R), CVA tenderness (L) Skin: positive: Color nml, No rash, Warm, Dry. negative: Cyanosis, Diaphoresis, Pallor Extremities: positive: Non-tender, Full ROM, Nml appearance. negative: Calf tenderness Neurologic/Psychiatric: positive: Oriented x3, Motor nml, Sensation nml, Mood/affect nml. negative: Weakness, Sensory loss, Facial droop, Slurred/abnml speech, Depressed mood/affect - LABS Result Diagrams: 07/24/20 04:29 07/24/20 04:29 - FOLLOW UP Follow Up: you were found to have C.diff colitis in the admission. after treated in hospital, your diarrhea are gradually resolved. you are prescribed another 7 days of oral Vancomycin to finish the treatment course. you may followup with your PCP in one to two weeks. Should your symptoms return or worsen, you may present ER or call 911 for help. - TIME SPENT Time Spent in Discharge (Minutes): 30
[2020-07-24 14:55] VITALS: BP 155/87
[2020-07-24] MEDS: FORMOTEROL FUMARATE NEB 20 MCG/2 ML INH SCH (15:04)
[2020-07-24] MEDS: BUDESONIDE 0.5 MG/2 ML NEB INH SCH (15:04)
== END 2020-07-24 15:03 | disposition home or self-care (01) | DRG 373 ==
LOC: EDUNIT# → ED 02:09 → SUPCPDRO 02:09 → ICU 07:27
PROVIDERS: ADMIT Internal Medicine; ATTEND Nurse Practitioner Gerontology
DX: A09 Infectious gastroenteritis and colitis, unspecified (principal); E86.0 Dehydration; A04.72 Enterocolitis due to Clostridium difficile, not specified as recurrent; J45.909 Unspecified asthma, uncomplicated; N32.3 Diverticulum of bladder; I10 Essential (primary) hypertension; N40.1 Benign prostatic hyperplasia with lower urinary tract symptoms; R39.198 Other difficulties with micturition; M35.3 Polymyalgia rheumatica; Z98.890 Other specified postprocedural states; Z79.52 Long term (current) use of systemic steroids; Z79.899 Other long term (current) drug therapy
CPT/HCPCS: 36415; 74177; 80048; 80053; 81003; 81599; 83690; 85025; 87493; 87631; 94640; 96360; 96361; 99284; 99285; A9270; J1650; J7626; J8499; Q9967; 0202U; 81001; 87045; 87046; 87086

== ENCOUNTER 2020-08-02 08:20 | Emergency (ER) | payer MEDICARE, OTHER ==
[2020-08-02] MEDS ORDERED: SODIUM CHLORIDE 0.9% 1,000 ML IV STA (09:06)
[2020-08-02 09:11] LABS: BASOPHILS % (AUTO) 0.3 %; EOSINOPHILS % (AUTO) 0.3 %; HGB - HEMOGLOBIN 14.9 g/dL (14.0-18.0); LYMPHOCYTES # (AUTO) 1.3 10^3/uL (1.5-3.5); LYMPHOCYTES % (AUTO) 14.4 %; MEAN CORPUSCULAR HEMOGLOBIN 31.8 pg (27.0-31.0); MEAN CORPUSCULAR HGB CONC 33.2 g/dL (32.0-36.0); MEAN CORPUSCULAR VOLUME 95.9 fL (80.0-94.0); MEAN PLATELET VOLUME 9.8 fL (7.4-11.4); MONOCYTES # (AUTO) 0.9 10^3/uL (0.0-1.0); MONOCYTES % (AUTO) 10.1 %; NEUTROPHILS # (AUTO) 6.5 10^3/uL (1.5-6.6); NEUTROPHILS % (AUTO) 74.6 %; PLT - PLATELET COUNT 463 10^3/uL (130-450); RED BLOOD COUNT 4.68 10^6/uL (4.70-6.10); RED CELL DISTRIBUTION WIDTH 12.7 % (12.0-15.0); WHITE BLOOD COUNT 8.8 x10^3/uL (4.8-10.8)
[2020-08-02 09:22] LABS: ALBUMIN 4.5 g/dL (3.2-5.5); ALBUMIN/GLOBULIN RATIO 1.6 (1.0-2.2); ALKALINE PHOSPHATASE 69 IU/L (42-121); ALT ALANINE AMINOTRANSFERASE 48 IU/L (10-60); AST ASPARTATE AMINOTRANSFERASE 32 IU/L (10-42); BILIRUBIN,TOTAL 1.4 mg/dL (0.2-1.0); BUN - BLOOD UREA NITROGEN 20 mg/dL (6-20); CALCIUM 9.5 mg/dL (8.5-10.3); CARBON DIOXIDE - CO2 23 mmol/L (21-32); CHLORIDE 102 mmol/L (101-111); GLUCOSE 117 mg/dL (70-100); TOTAL PROTEIN 7.3 g/dL (6.7-8.2)
[2020-08-02 09:49] LABS: LIPASE < 10 U/L (22-51)
[2020-08-02 10:45] VITALS: BP 145/90
--- NOTE | 2020-08-03 18:53 | ED Physician Documentation ---
History of Present Illness - Stated complaint Stated Complaint: CRAMPING/GAS - Chief complaint Chief Complaint: Abd Pain - History obtained from History obtained from: Patient - Additonal information Additional information: 64-year-old man with past medical history of C. difficile infection Status post hospitalization from July 20 to July 24 , Discharged on oral vancomycin presents with cramping abdominal pain and explosive watery diarrhea, 8 episodes in the past 2 days after stopping his vancomycin. Patient denies fevers, urinary symptoms, nausea or vomiting. Denies blood in the diarrhea. Review of Systems Ten Systems: 10 systems reviewed and negative Constitutional: denies: Fever, Chills GI: reports: Abdominal Pain, Diarrhea. denies: Nausea, Vomiting PD PAST MEDICAL HISTORY - Past Medical History Cardiovascular: Hypertension Respiratory: Asthma Neuro: None Endocrine/Autoimmune: Other GI: None : Other HEENT: None Psych: None Musculoskeletal: None Derm: None Other Past Medical History: PMR - Past Surgical History Past Surgical History: Yes Ortho: Other - Present Medications Home Medications: Ambulatory Orders Medication Instructions Recorded Confirmed Albuterol Sulfate [Proair Hfa 1 - 2 puffs INH QID PRN 07/20/20 07/20/20 Inhaler] Budesonide/Formoterol Fumarate 1 puffs INH BID 07/20/20 07/20/20 [Symbicort 160-4.5 Mcg Inhaler] Etodolac [Lodine] 400 mg PO BIDWM 07/20/20 07/20/20 Irbesartan [Avapro] 150 mg PO DAILY 07/20/20 07/20/20 Tamsulosin [Flomax] 0.4 mg PO QPM 07/20/20 07/20/20 Lactobacillus Acidophilus 1 each PO QDAC #30 tablet 08/02/20 [Probiotic Acidophilus] Prednisone [Annie] 08/02/20 Vancomycin [Vancocin] 125 mg PO Q6H 10 Days #40 capsule 08/02/20 - Allergies Allergies/Adverse Reactions: Allergies Allergy/AdvReac Type Severity Reaction Status Date / Time morphine Allergy Hallucinati Verified 08/02/20 08:25 ons - Social History Does the pt smoke?: No Smoking Status: Never smoker Does the pt drink ETOH?: No Does the pt have substance abuse?: No - Immunizations Immunizations are current?: Yes - POLST Patient has POLST: No POLST Status: Full Code PD ED PE NORMAL - Vitals Vital signs reviewed: Yes - General General: Alert and oriented X 3 - HEENT HEENT: Atraumatic, PERRL, EOMI - Neck Neck: Supple, no meningeal sign - Cardiac Cardiac: RRR - Respiratory Respiratory: No respiratory distress, Clear bilaterally - Abdomen Abdomen: Non tender, Non distended - Rectal Rectal: Deferred - Back Back: No CVA TTP - Derm Derm: Normal color, No rash - Extremities Extremities: No deformity, No edema - Neuro Neuro: Alert and oriented X 3 - Psych Psych: Normal mood, Normal affect Results - Vitals Vitals: Oxygen O2 Source Room air - Labs Labs: Laboratory Tests 08/02/20 08/02/20 08/02/20 08:43 08:43 09:17 WBC 8.8 RBC 4.68 L Hgb 14.9 Hct 44.9 MCV 95.9 H MCH 31.8 H MCHC 33.2 RDW 12.7 Plt Count 463 H MPV 9.8 Neut # (Auto) 6.5 Lymph # (Auto) 1.3 L Mower # (Auto) 0.9 Eos # (Auto) 0.0 Baso # (Auto) 0.0 Absolute Nucleated RBC 0.00 Nucleated RBC % 0.0 Sodium 136 Potassium 4.3 Chloride 102 Carbon Dioxide 23 Anion Gap 11.0 BUN 20 Creatinine 1.0 Estimated GFR (MDRD) 75 L Glucose 117 H Lactic Acid 1.1 Calcium 9.5 Total Bilirubin 1.4 H AST 32 ALT 48 Alkaline Phosphatase 69 Total Protein 7.3 Albumin 4.5 Globulin 2.8 Albumin/Globulin Ratio 1.6 Lipase < 10 L PD MEDICAL DECISION MAKING - ED course ED course: 64-year-old man presents with second time C. difficile infection. Presentation mild at this time so we will trial outpatient antibiotics. Strict return precautions given. Patient should follow-up with his primary doctor this week. Departure - Departure Disposition: 01 Home, Self Care Clinical Impression: Diarrhea, Abdominal cramping Condition: Good Instructions: Clostridium Difficile Infec Prescriptions: Lactobacillus Acidophilus [Probiotic Acidophilus] 1 each PO QDAC #30 tablet Vancomycin [Vancocin] 125 mg PO Q6H 10 Days #40 capsule Comments: You are likely experiencing a recurrence of your C. difficile infection. Take your antibiotics and probiotics as prescribed. I not going to prescribe an antidiarrheal at this time because I do not want to mask your symptoms. Return to the ED if you do not have improvement within 48 to 72 hours. If you have fevers, return immediately. Follow-up with your primary doctor this week. Discharge Date/Time: 08/02/20 11:02
== END 2020-08-02 11:02 | disposition home or self-care (01) ==
LOC: ED 08:20
DX: A04.71 Enterocolitis due to Clostridium difficile, recurrent (principal); I10 Essential (primary) hypertension
CPT/HCPCS: 36415; 80053; 83605; 83690; 85025; 99283; 99284